=== PATIENT | female | born 1990 ===

== ENCOUNTER 2019-04-08 13:26 | Emergency (ER) | payer SELFPAY ==
[~2019-04-08] VITALS: Ht 172.7 cm; Wt 47.6 kg
[2019-04-08] MEDS ORDERED: OLAN10TA3 PO (13:52)
[2019-04-08 14:06] LABS: CLARITY,URINE CLOUDY (Clear); COLOR,URINE YELLOW (Yellow); GLUCOSE, URINE NEGATIVE (Neg); KETONES,URINE NEGATIVE (Neg); LEUKOCYTE ESTERASE ,URINE TRACE (Neg); NITRITES, URINE NEGATIVE (Neg); OCCULT BLOOD,URINE NEGATIVE (Neg); PROTEIN,URINE NEGATIVE (Neg); UA COLLECTION TYPE CLN CATCH MIDSTREAM; UROBILINOGEN,URINE 0.2 E.U/dL (0.2-1.0)
[2019-04-08 14:07] LABS: BASOPHILS # (AUTO) 0.1 X10'3 (0-0.2); BASOPHILS % (AUTO) 0.7 % (0-1); EOSINOPHILS % (AUTO) 0.4 % (0-6); HEMATOCRIT 43.2 % (35.0-45.0); HEMOGLOBIN 14.6 g/dl (12.0-16.0); LYMPHOCYTES # (AUTO) 2.5 X10'3 (1.1-4.8); LYMPHOCYTES % (AUTO) 23.7 % (21-51); MEAN CORPUSCULAR HEMOGLOBIN 29.4 PG (27.0-31.0); MEAN CORPUSCULAR HGB CONC 33.7 g/dL (33.0-36.5); MEAN CORPUSCULAR VOLUME 87.3 FL (78-98); MEAN PLATELET VOLUME 9.2 FL (7.4-10.4); MONOCYTES # (AUTO) 0.5 X10'3 (0-0.9); MONOCYTES % (AUTO) 4.8 % (2-12); NEUTROPHILS # (AUTO) 7.5 X10'3 (1.8-7.7); NEUTROPHILS % (AUTO) 70.4 % (42-75); PLATELET COUNT 312 X10'3 (140-440); RED BLOOD COUNT 4.95 X10'6 (4.20-5.60); RED CELL DISTRIBUTION WIDTH 14.7 % (11.5-14.5); WHITE BLOOD COUNT 10.6 X10'3 (4.5-11.0)
[2019-04-08 14:10] LABS: URINE HCG NEGATIVE (NEG)
[2019-04-08 14:15] LABS: URINE AMPHETAMINE SCREEN NEGATIVE (Neg); URINE BARBITUATE SCREEN NEGATIVE (Neg); URINE BENZODIAZEPINES SCREEN NEGATIVE (Neg); URINE CANNABINOID SCREEN NEGATIVE (Neg); URINE COCAINE SCREEN NEGATIVE (Neg); URINE METHADONE SCREEN NEGATIVE (Neg); URINE OPIATE SCREEN NEGATIVE (Neg); URINE PHENCYCLIDINE SCREEN NEGATIVE (Neg)
[2019-04-08 14:17] LABS: MUCUS STRANDS MODERATE /LPF (Neg); SQUAMOUS EPITHELIAL CELL,UR MANY /LPF (FEW)
[2019-04-08 14:18] LABS: BACTERIA,URINE 2+ /HPF (Neg); RBC,URINE 0-2 /HPF (0-2)
[2019-04-08 14:21] LABS: ALANINE AMINOTRANSFERASE 19 U/L (12-78); ALBUMIN 3.8 G/DL (3.4-5.0); ALBUMIN/GLOBULIN RATIO 1.1 (1.1-1.5); ALKALINE PHOSPHATASE 51 IU/L (46-116); ANION GAP 7 (8-16); ASPARTATE AMINO TRANSFERASE 9 U/L (10-37); BILIRUBIN,TOTAL 0.3 MG/DL (0.1-1.0); BLOOD UREA NITROGEN 15 MG/DL (7-18); BUN/CREATININE RATIO 20.8 (6.6-38.0); CALCIUM 8.7 MG/DL (8.5-10.1); CHLORIDE 102 MMOL/L (99-107); CREATININE 0.72 MG/DL (0.40-0.90); GLUCOSE 89 MG/DL (70-104); POTASSIUM 3.9 MMOL/L (3.5-5.1); SODIUM 140 MMOL/L (135-145); TOTAL CARBON DIOXIDE 31.5 MMOL/L (24-32); TOTAL PROTEIN 7.4 G/DL (6.4-8.2); eGFR > 90 ML/MIN
[2019-04-08 14:34] LABS: ETHANOL < 0.010 GM/DL (0.0-0.010)
--- NOTE | 2019-04-08 19:00 | NUR ---
Patient is awake and sitting on bed 22. It is difficult to establish an orientation level except patient knows person, and that she is in a hospital. When asked about S/I patient says yes but will not elaborate on a plan. The patient states she was in a psychiatriac facility in [facility] in the past but will not elaborate. Patient demands lots of food. She has had a recent weight loss. The patient makes intermittent eye contact. She admits to depression. This ticket writer can get no further information from the patient. The patient is advised that she is in a safe place. Patients bed is in direct view from the nursing station. Q15 minute rounding is being done for patient safety.
[2019-04-08] MEDS: olanzapine 10mg tablet PO SCH (20:20)
--- NOTE | 2019-04-08 22:05 | NUR ---
This patient is sleeping quietly on her left side.
--- NOTE | 2019-04-09 00:18 | NUR ---
Report called to [facility]add. Report given to Justa
--- NOTE | 2019-04-09 05:02 | NUR ---
Patient remains sleeping.
[2019-04-09 05:43] VITALS: BP 107/72
--- NOTE | 2019-04-09 06:31 | NUR ---
Patient sleeping on right side. No distress observed. Continue to monitor.
--- NOTE | 2019-04-09 08:15 | NUR ---
RN awoke patient to give medication and to eat. Patient was calm and cooperative. No distress observe. Continue to monitor.
[2019-04-09] MEDS: olanzapine 10mg tablet PO SCH (08:19)
== END 2019-04-09 14:05 ==
LOC: ER 13:28
DX: F23 Brief psychotic disorder (principal); F32.9 Major depressive disorder, single episode, unspecified; R45.1 Restlessness and agitation; R45.4 Irritability and anger; F15.90 Other stimulant use, unspecified, uncomplicated; Z59.0 Homelessness; Z79.899 Other long term (current) drug therapy
CPT/HCPCS: 36415; 80053; 80305; 80320; 81001; 81025; 84443; 85025; 99285

== ENCOUNTER 2019-04-25 20:07 | Emergency (ER) | payer MEDICAID, OTHER ==
[~2019-04-25] VITALS: Ht 172.7 cm; Wt 47.1 kg
[~2019-04-25 20:07] MED LIST: OLAN10TA3 PO
--- NOTE | 2019-04-25 21:36 | NUR ---
Pt changed into green scrubs. Pt given water and waiting for UA from pt. Pt's belongings documented and placed in ambulance bay lockers. Pt given oral hygiene products and socks.
[2019-04-25] MEDS ORDERED: OLANZapine 5mg rapidly disint. tablet PO ONE (21:45)
[2019-04-25] MEDS ORDERED: LORazepam 1 MG tablet PO ONE (21:45)
[2019-04-25 22:21] LABS: ALANINE AMINOTRANSFERASE 25 U/L (12-78); ALBUMIN 4.5 G/DL (3.4-5.0); ALBUMIN/GLOBULIN RATIO 1.2 (1.1-1.5); ALKALINE PHOSPHATASE 58 IU/L (46-116); ANION GAP 13 (8-16); ASPARTATE AMINO TRANSFERASE 14 U/L (10-37); BILIRUBIN,TOTAL 0.6 MG/DL (0.1-1.0); BLOOD UREA NITROGEN 13 MG/DL (7-18); BUN/CREATININE RATIO 17.1 (6.6-38.0); CALCIUM 9.6 MG/DL (8.5-10.1); CHLORIDE 103 MMOL/L (99-107); CREATININE 0.76 MG/DL (0.40-0.90); GLUCOSE 101 MG/DL (70-104); POTASSIUM 3.7 MMOL/L (3.5-5.1); SODIUM 144 MMOL/L (135-145); TOTAL CARBON DIOXIDE 27.6 MMOL/L (24-32); TOTAL PROTEIN 8.3 G/DL (6.4-8.2); eGFR > 90 ML/MIN
[2019-04-25 22:23] LABS: ACETAMINOPHEN < 2.0 UG/ML (10-30); BASOPHILS % (AUTO) 0.2 % (0-1); EOSINOPHILS % (AUTO) 0 % (0-6); ETHANOL < 0.010 GM/DL (0.0-0.010); HEMATOCRIT 38.6 % (35.0-45.0); HEMOGLOBIN 12.9 g/dl (12.0-16.0); LYMPHOCYTES # (AUTO) 1.8 X10'3 (1.1-4.8); LYMPHOCYTES % (AUTO) 16.4 % (21-51); MEAN CORPUSCULAR HEMOGLOBIN 29.2 PG (27.0-31.0); MEAN CORPUSCULAR HGB CONC 33.3 g/dL (33.0-36.5); MEAN CORPUSCULAR VOLUME 87.7 FL (78-98); MEAN PLATELET VOLUME 8.9 FL (7.4-10.4); MONOCYTES # (AUTO) 0.8 X10'3 (0-0.9); MONOCYTES % (AUTO) 7.3 % (2-12); NEUTROPHILS # (AUTO) 8.4 X10'3 (1.8-7.7); NEUTROPHILS % (AUTO) 76.1 % (42-75); PLATELET COUNT 297 X10'3 (140-440)
--- NOTE | 2019-04-26 00:40 | NUR ---
UA obtained; sent to lab for processing.
[2019-04-26 00:44] LABS: URINE HCG NEGATIVE (NEG)
[2019-04-26 00:55] LABS: URINE AMPHETAMINE SCREEN POSITIVE (Neg); URINE BARBITUATE SCREEN NEGATIVE (Neg); URINE BENZODIAZEPINES SCREEN NEGATIVE (Neg); URINE CANNABINOID SCREEN NEGATIVE (Neg); URINE COCAINE SCREEN NEGATIVE (Neg); URINE METHADONE SCREEN NEGATIVE (Neg); URINE OPIATE SCREEN POSITIVE (Neg); URINE PHENCYCLIDINE SCREEN NEGATIVE (Neg)
--- NOTE | 2019-04-26 01:06 | NUR ---
Packet faxed to [facility]. Unable to confirm receipt of packet as out of business hours.
--- NOTE | 2019-04-26 05:42 | NUR ---
Pt up to bathroom to perform morning toilet. No assistance required.
--- NOTE | 2019-04-26 07:14 | NUR ---
pt is sleeping
--- NOTE | 2019-04-26 08:36 | NUR ---
pt refused to eat and sitting quietly in bed just staring
--- NOTE | 2019-04-26 08:48 | NUR ---
Pt awake. She refused breakfast. She is asking to be taken to [facility]. Let her know she is in [facility]. She wants to got [facility]. Let her know she is at [facility].
--- NOTE | 2019-04-26 09:09 | NUR ---
pt keeps on pacing back and forth in front of nurses station. Pt is crying and now just went back to room sitting up in bed.
--- NOTE | 2019-04-26 10:18 | NUR ---
[facility] table filler Flaca at bedside
--- NOTE | 2019-04-26 12:04 | NUR ---
Pt sitting up in bed and crying
--- NOTE | 2019-04-26 13:04 | NUR ---
Ayana Savage called to get report.
[2019-04-26] MEDS ORDERED: LORazepam 1 MG tablet PO ONE (13:15)
[2019-04-26] MEDS: OLANZapine 2.5MG tablet PO SCH (13:34)
--- NOTE | 2019-04-26 13:38 | NUR ---
tad office called stating [facility] looking at pt and will accept once we can send a tsh and UA. order placed. called lab stated will add to previous labs. will await results.
--- NOTE | 2019-04-26 13:58 | NUR ---
PT KEEPS WALKING IN FRONT OF THE NURSES STATION AND PT IS PACING AND TALKING TO HERSELF.
[2019-04-26 14:28] LABS: CLARITY,URINE SLIGHTLY CLOUDY (Clear); COLOR,URINE YELLOW (Yellow); GLUCOSE, URINE NEGATIVE (Neg); KETONES,URINE 15 mg/dl (Neg); LEUKOCYTE ESTERASE ,URINE NEGATIVE (Neg); NITRITES, URINE NEGATIVE (Neg); OCCULT BLOOD,URINE NEGATIVE (Neg); PROTEIN,URINE NEGATIVE (Neg); UROBILINOGEN,URINE 0.2 E.U/dL (0.2-1.0)
[2019-04-26 14:34] LABS: UA COLLECTION TYPE VOIDED
[2019-04-26 14:45] LABS: AMORPHOUS PHOSPHATES 1+; MUCUS STRANDS MODERATE /LPF (Neg); SQUAMOUS EPITHELIAL CELL,UR FEW /LPF (FEW)
[2019-04-26 14:46] LABS: BACTERIA,URINE FEW /HPF (Neg); RBC,URINE 0-2 /HPF (0-2); WBC,URINE 0-4 /HPF (0-4)
--- NOTE | 2019-04-26 14:51 | NUR ---
Pt continues to pace and is talking to someone continuously who is not there.
--- NOTE | 2019-04-26 15:17 | NUR ---
Pt sitting up in bed
--- NOTE | 2019-04-26 15:19 | NUR ---
PT IS RESTING IN BEDN SITTING UP QUIETLY
--- NOTE | 2019-04-26 16:48 | NUR ---
Pt asking for saltine crackers. Crackers given.
--- NOTE | 2019-04-26 18:01 | NUR ---
Pt asleep resting on left side in no apparent distress. Respirations are even and unlabored.
[2019-04-27 05:30] VITALS: BP 109/67
--- NOTE | 2019-04-27 06:16 | NUR ---
Pt asleep on her back with even unlabored respirations in no apparent distress
[2019-04-27] MEDS: OLANZapine 2.5MG tablet PO SCH (07:07)
--- NOTE | 2019-04-27 07:15 | NUR ---
Pt asking for crackers and fawad
--- NOTE | 2019-04-27 08:14 | NUR ---
Pt sitting up awake and eating breakfast
--- NOTE | 2019-04-27 09:23 | NUR ---
Pt awake eating crackers and jello
--- NOTE | 2019-04-27 11:15 | NUR ---
Pt lying on her right side asleep in no apprent distress. Respirations are even and unlabored.
--- NOTE | 2019-04-27 12:29 | NUR ---
Cynthia from [facility] called to say Pt is accepted at [facility] by Dr Morocho.
--- NOTE | 2019-04-27 13:03 | NUR ---
Pt sitting up and eating lunch
[2019-04-27] MEDS ORDERED: OLAN10TA3 PO (13:21)
== END 2019-04-27 13:30 ==
LOC: ER 20:08
DX: F79 Unspecified intellectual disabilities (principal); F29 Unspecified psychosis not due to a substance or known physiological condition; F41.9 Anxiety disorder, unspecified; Z79.899 Other long term (current) drug therapy
CPT/HCPCS: 36415; 80053; 80305; 80320; 80329; 81001; 81025; 84443; 85025; 99285

== ENCOUNTER 2019-04-27 12:55 | Inpatient (IN) | payer MEDICAID ==
[~2019-04-27] VITALS: Ht 172.7 cm; Wt 59.0 kg
[2019-04-27] MEDS ORDERED: hydrOXYzine 25 MG tablet PO PRN (13:15)
[2019-04-27] MEDS ORDERED: acetaminophen 325mg tablet PO PRN ×2 (13:15)
[2019-04-27] MEDS ORDERED: tuberculin, purif. prot. deriv. 5 units/0.1ml ID ONE (13:15)
[2019-04-27] MEDS ORDERED: mag hydrox/Alum hydrox/simeth 30ml oral suspension PO PRN (13:15)
[2019-04-27] MEDS ORDERED: magnesium hydroxide 30ml (MOM) UD suspension PO PRN (13:15)
[2019-04-27] MEDS ORDERED: loperamide 2mg capsule PO PRN (13:15)
[2019-04-27] MEDS ORDERED: OLAN10TA3 PO (13:21)
--- NOTE | 2019-04-27 13:38 | NUR ---
Pt arrives on the unit at 1332 on a 5150 for Gravely disabled. Pt presents as psychotic. Latonya does not respond to most questions. She appears to be talking to someone that is not there. She does not remember when she last ate. She is sunburnt from being outside and cannot states where she will go when she leaves. She is unable to give a plan to provide adequate food, clothing or long-term. Pt wheel chaired here accompanied by Armetheon and Nirvaha Heather. Pt does sign most of the paperwork and answers some questions. Pt must mumble to someone that is not there and pray about it prior to answering questions. Pt given Ativan after admission interview and snacks
[2019-04-27] MEDS: LORazepam 1 MG tablet PO PRN ×2 (14:24→22:10)
[2019-04-27 15:01] VITALS: BP 106/77
--- NOTE | 2019-04-27 16:01 | NUR ---
Nursing Progress Note: Latonya Orellana Legal hold: 5150 Exp. 04/30/19 @ 1332 Client on involuntary status for DTS. Report received from VIANCA Santiago with use of SBAR. Why are they here: Pt arrives on the unit at 1332 on a 5150 for Gravely disabled. Pt presents as psychotic. Latonya does not respond to most questions. She appears to be talking to someone that is not there. She does not remember when she last ate. She is sunburned from being outside and cannot state where she will go when she leaves. She is unable to give a plan to provide adequate food, clothing or fci Assessment What has happened this shift: Patient is mostly compliant with most requests. She is easily distracted appearing to respond to others who are not present to this proposal writer. She is unable to state purpose for being here. Patient paces the room, stops, addresses visual/audio hallucination, places hands as if in prayer and then walks back. Requested Ativan which was administered then repeated the response multiple times. PPD administered without difficulty. SI/HI: Does not respond to questions A/VH: observed both audio and visual Sleep: ADL's: Independent Group attendance: Arrived after group started Were Meds taken: PRNs only ordered Any med S/E: None observed Mental Status Exam Appearance: Adequately groomed and dressed for unit. Eye contact: poor Behavior: Withdrawn, paranoid Speech: Clear, pressured Mood: restless, Affect: Blunted Thought process: disorganized, easily distracted from topic Thought Content: unable to determine Cognition: Oriented to person Insight: Poor Judgment: Poor Interventions PRN's used: Ativan Therapeutic interventions: 1:1 assessment at bedside, provided therapeutic communication, encouraged to go to groups, monitor Q15 minutes for safety. Restraints/seclusion/emergency medication: None. Justification of Continued Inpatient Treatment: Pt. Requires psychiatric evaluation for appropriate medication to stabilize current crisis. Requires ongoing monitoring of patient behaviors. Without adequate treatment for current situation, pt is at high risk for readmission if discharged at this time.
[2019-04-27 19:55] VITALS: BP 127/71
[2019-04-27] MEDS ORDERED: olanzapine 10mg tablet PO SCH (22:00)
[2019-04-27] MEDS ORDERED: olanzapine 10mg tablet PO ONE (22:00)
--- NOTE | 2019-04-28 04:18 | NUR ---
Nursing Progress Note: Legal hold: 5150 Exp. 04/30/19 @ 1332 Client on involuntary status for DTS. Report received from VIANCA Santiago with use of SBAR. Why are they here: Pt arrives on the unit at 1332 on a 5150 for Gravely disabled. Pt presents as psychotic. Latonya does not respond to most questions. She appears to be talking to someone that is not there. She does not remember when she last ate. She is sunburned from being outside and cannot state where she will go when she leaves. She is unable to give a plan to provide adequate food, clothing or halfway Assessment: What has happened this shift: The patient was in her room at shift change. She at first agreed to 1:1 at bedside. "I can talk now...No, I changed my mind, I won't talk now." The patient, when asked if knows why she's here, responded, "I'm having a real hard time with life right now. Is there any way you can get me into rehab?" When not speaking to this nurse, the patient is quietly talking to someone in her head. Sometimes she won't respond to her name when she's too distracted by the voices in her head. The patient spent the evening in her room, then asked to be moved rooms. "You put me too close to the window, it scares me." The patient was then moved to room 325B. Before leaving for the night, Dr. Guzman ordered Zyprexa 10mg to be given at . The patient was reluctant to take Zyprexa, but did. She has been sleeping all night. SI/HI: Does not answer A/VH: Observed both audio and visual Sleep: See sleep hours ADL's: Independent Group attendance: No groups at night. Were Meds taken: Yes Any med S/E: None observed Mental Status Exam: Appearance: Adequately groomed and dressed in green scrubs. Eye contact: poor Behavior: Withdrawn, paranoid, isolative Speech: Clear, pressured, latent Mood: Restless, anxious Affect: Blunted Thought process: Disorganized, easily distracted. Thought Content: unable to determine Cognition: Oriented to person Insight: Poor Judgment: Poor Interventions: PRN's used: Ativan Therapeutic interventions: 1:1 assessment at bedside, provided therapeutic communication, encouraged to go to groups, monitor Q15 minutes for safety. Restraints/seclusion/emergency medication: None. Justification of Continued Inpatient Treatment: Pt. Requires psychiatric evaluation for appropriate medication to stabilize current crisis. Requires ongoing monitoring of patient behaviors. Without adequate treatment for current situation, pt is at high risk for readmission if discharged at this time.
[2019-04-28] MEDS ORDERED: olanzapine 10mg tablet PO SCH (08:00)
[2019-04-28] MEDS ORDERED: iohexol 300mg/ml 100ml inj. ONE (13:11)
[2019-04-28 13:49] LABS: CHOLESTEROL 151 MG/DL (0-200); HDL CHOLESTEROL 30 MG/DL (35-60); LDL CHOLESTEROL 96 MG/DL (50-100); TRIGLYCERIDES 228 MG/DL (20-135)
--- NOTE | 2019-04-28 17:30 | NUR ---
Nursing Progress Note: Legal hold: 5150 Exp. 04/30/19 @ 1332 Client on involuntary status for DTS. Report received from VIANCA Barry with use of SBAR. Why are they here: Pt arrives on the unit at 1332 on a 5150 for Gravely disabled. Pt presents as psychotic. Latonya does not respond to most questions. She appears to be talking to someone that is not there. She does not remember when she last ate. She is sunburned from being outside and cannot state where she will go when she leaves. She is unable to give a plan to provide adequate food, clothing or prison Assessment: What has happened this shift: Pt. sleeping at beginning of shift. Pt. refused breakfast, pt. refused part of assessment. Pt. denies SI/HI, but responding to internal stimuli. Pt. frequently overheard talking with herself. RN unabole to do full assessment as pt. stops talking. Pt. has disorganized thinking, saying that she has diabetes, and then denies it. Pt.'s provider ordered CT scan today, pt. initially refused but then agreed. CT scan negative. Pt. seen pacing. Dietary consult placed for low BMI. Pt. is isolative and withdrawn. Pt. easilty distracted and tangential in conversation. Pt. requests shower and then refuses it. Pt. seen pacing and talking to herself throughout afternoon. SI/HI: Does not answer A/VH: Pt. does not answer but is responding to internal stimuli . Sleep: 7 hrs with frequent naps throughout the day. ADL's: Independent Group attendance: Pt. did not attend groups Were Meds taken: NA Any med S/E: None observed Mental Status Exam: Appearance: Adequately groomed and dressed in green scrubs. Eye contact: poor Behavior: Withdrawn, paranoid, isolative Speech: Clear, pressured, latent Mood: Restless, anxious Affect: Blunted Thought process: Disorganized, easily distracted, thought blocking. Thought Content: unable to determine Cognition: Oriented to person and place Insight: Poor Judgment: Poor Interventions: PRN's used: Therapeutic interventions: 1:1 assessment at bedside, provided therapeutic communication, encouraged to go to groups, monitor Q15 minutes for safety. Restraints/seclusion/emergency medication: None. Justification of Continued Inpatient Treatment: Pt. Requires psychiatric evaluation for appropriate medication to stabilize current crisis. Requires ongoing monitoring of patient behaviors. Without adequate treatment for current situation, pt is at high risk for readmission if discharged at this time.
[2019-04-28 20:00] VITALS: BP 110/80
[2019-04-28] MEDS: olanzapine 10mg tablet PO SCH (20:23)
[2019-04-28] MEDS: LORazepam 1 MG tablet PO PRN (21:14)
[2019-04-28] MEDS ORDERED: OLANZapine 5mg rapidly disint. tablet PO ONE (22:00)
[2019-04-28] MEDS ORDERED: LORazepam 1 MG tablet PO ONE (22:00)
--- NOTE | 2019-04-29 00:06 | NUR ---
Nursing Progress Note: Legal hold: 5150 Exp. 04/30/19 @ 1332 Client on involuntary status for DTS. Report received from VIANCA Santiago with use of SBAR. Why are they here: Pt arrives on the unit at 1332 on a 5150 for Gravely disabled. Pt presents as psychotic. Latonya does not respond to most questions. She appears to be talking to someone that is not there. She does not remember when she last ate. She is sunburned from being outside and cannot state where she will go when she leaves. She is unable to give a plan to provide adequate food, clothing or custodial Assessment: What has happened this shift: The patient was seen pacing the halls at shift change. The patient refused 1:1 assessment. As she paces she can be heard talking to herself, "I want you to make sure nobody gets hurt. You need to tell them to make sure Latonya doesn't get hurt." As she paces, she is unaware of her surroundings, and will walk right into people. The patient continued to pace until HS med pass. The patient had Zyprexa ordered, and took it. A little later, she asked for Ativan, then refused, then asked again and took it. She was still awake at 2300, so ordered repeat Zyprexa and Ativan. The patient took them and continued pacing. About 1/2 hour later she was still pacing and asked a female nurse to sit with her while she fell asleep, but 5 minutes later she was pacing. 15 minutes later she went and lay down. This time for good. She's asleep at this time. SI/HI: Does not answer A/VH: Observed both audio and visual Sleep: See sleep hours ADL's: Independent Group attendance: No groups at night. Were Meds taken: Yes Any med S/E: None observed Mental Status Exam: Appearance: Adequately groomed, disheveled hair, and dressed in green scrubs. Eye contact: poor Behavior: Withdrawn, paranoid, isolative Speech: Pressured, low volume, poverty Mood: Restless, anxious Affect: Blunted, fearful. Thought process: Poverty of thought, Disorganized, easily distracted. Thought Content: unable to determine Cognition: Oriented to person Insight: Poor Judgment: Poor Interventions: PRN's used: Ativan x2 Therapeutic interventions: 1:1 assessment at bedside, provided therapeutic communication, encouraged to go to groups, monitor Q15 minutes for safety. Restraints/seclusion/emergency medication: None. Justification of Continued Inpatient Treatment: Pt. Requires psychiatric evaluation for appropriate medication to stabilize current crisis. Requires ongoing monitoring of patient behaviors. Without adequate treatment for current situation, pt is at high risk for readmission if discharged at this time.
--- NOTE | 2019-04-29 09:19 | NUR ---
COLLATERAL CONTACT: TIFFANIE contacted [facility] Office at [phone], and spoke w/ Uziel regarding pt. SW was informed pt has only received crisis services 1x after an ED visit for admission to [facility] on 04/09/2019. This short story writer is instructed to provide resources for pt to attend ACCESS walk in upon discharge. Dahiana Pryor, Director [employer] DESIGNER [id number] Supervised by Cal Mendoza, [id number]
--- NOTE | 2019-04-29 11:32 | NUR ---
Malnutrition consult RE "low wt:" Pt admit w/ psychosis AOx2. Pt has normal strength, no edema/wounds; no significant wt loss hx though only pt stated wts. PO 75-100% regular diet meeting nutrient needs. At this time pt does not meet malnutrition criteria. Will continue to monitor. Addendum: 04/29/19 at [address] Amended: Links added.
[2019-04-29] MEDS: LORazepam 1 MG tablet PO PRN ×2 (17:39→20:10)
--- NOTE | 2019-04-29 17:40 | NUR ---
Nursing Progress Note: Legal hold: 5150 Exp. 04/30/19 @ 1332 Client on involuntary status for DTS. Report received from VIANCA Ibarra with use of SBAR. Why are they here: Pt arrives on the unit at 1332 on a 5150 for Gravely disabled. Pt presents as psychotic. Latonya does not respond to most questions. She appears to be talking to someone that is not there. She does not remember when she last ate. She is sunburned from being outside and cannot state where she will go when she leaves. She is unable to give a plan to provide adequate food, clothing or alf Assessment: What has happened this shift: Pt. sleeping at beginning of shift. Pt. refused vitals. Pt. refused AM assessment. Pt. refused breakfast, lunch. Pt. c/o diarrhea pt. refuses immodium. Pt. responding to internal stimuli, when RN approached pt. to assess PPD, pt. refused and then mumbled to herself, "He only wants what have". Pt. is agitated, pacing in the hallway more in the afternoon. Pt. Showered. Pt. became increasingly agitated and recieved ativan 1mg po. Pt. also recieved immodium for diarrhea. SI/HI: Does not answer A/VH: Pt. does not answer but is responding to internal stimuli . Sleep: 5 hrs with frequent naps throughout the day. ADL's: Independent. pt. showered. Group attendance: Pt. did not attend groups Were Meds taken: NA Any med S/E: None observed Mental Status Exam: Appearance: disheveled. dressed in green scrubs Eye contact: poor Behavior: Withdrawn, paranoid, isolative Speech: Clear, pressured, latent Mood: Restless, anxious Affect: Blunted Thought process: Disorganized, easily distracted, thought blocking. Thought Content: Pt. focused on discharging to rehab. Cognition: Oriented to person and place Insight: Poor Judgment: Poor Interventions: PRN's used: Ativan and Immodium Therapeutic interventions: 1:1 assessment at bedside, provided therapeutic communication, encouraged to go to groups, monitor Q15 minutes for safety. Restraints/seclusion/emergency medication: None. Justification of Continued Inpatient Treatment: Pt. Requires psychiatric evaluation for appropriate medication to stabilize current crisis. Requires ongoing monitoring of patient behaviors. Without adequate treatment for current situation, pt is at high risk for readmission if discharged at this time.
[2019-04-29] MEDS: protein shake 8oz. (237ml) PO SCH ×2 (18:00→18:11)
[2019-04-29 19:26] VITALS: BP 115/85
[2019-04-29] MEDS: olanzapine 10mg tablet PO SCH (20:10)
--- NOTE | 2019-04-30 03:58 | NUR ---
Nursing Progress Note: Legal hold: 5150 Exp. 04/30/19 @ 1332 Client on involuntary status for DTS. Report received from VIANCA Cleary with use of SBAR. Why are they here: Pt arrives on the unit at 1332 on a 5150 for Gravely disabled. Pt presents as psychotic. Latonya does not respond to most questions. She appears to be talking to someone that is not there. She does not remember when she last ate. She is sunburned from being outside and cannot state where she will go when she leaves. She is unable to give a plan to provide adequate food, clothing or [facility] Assessment: What has happened this shift: The patient was seen pacing the halls at shift change, repeating that she is fearful of scary monsters trying to get her. Patient was fixated on getting into rehab during assessment, repeatedly asking this RN when she can go to rehab. The patient was cooperative during assessment. Before going to bed the Patient asked for snacks, but was told that she needs to eat her meals and not snacks only. The patient took zyprexa and ativan at hs with no problems. SI/HI: stated that she has SI due to monsters chasing her. A/VH: Observed both audio and visual Sleep: See sleep hours ADL's: Independent Group attendance: No groups at night. Were Meds taken: Yes Any med S/E: None observed Mental Status Exam: Appearance: Adequately groomed, disheveled hair, and dressed in green scrubs. Eye contact: poor Behavior: Withdrawn, paranoid, isolative Speech: Pressured, low volume, poverty Mood: Restless, anxious Affect: fearful. Thought process: Poverty of thought, Disorganized, easily distracted. Thought Content: unable to determine Cognition: Oriented to person Insight: Poor Judgment: Poor Interventions: PRN's used: Ativan x1 Therapeutic interventions: 1:1 assessment at bedside, provided therapeutic communication, monitor Q15 minutes for safety. Restraints/seclusion/emergency medication: None. Justification of Continued Inpatient Treatment: Pt. Requires psychiatric evaluation for appropriate medication to stabilize current crisis. Requires ongoing monitoring of patient behaviors. Without adequate treatment for current situation, pt is at high risk for readmission if discharged at this time.
[2019-04-30] MEDS: protein shake 8oz. (237ml) PO SCH ×3 (08:00→18:08)
[2019-04-30] MEDS ORDERED: PALIPERIDONE 3 MG TAB.ER.24 PO ONE (08:10)
[2019-04-30] MEDS: LORazepam 1 MG tablet PO PRN ×2 (10:07→17:47)
--- NOTE | 2019-04-30 11:23 | NUR ---
Notified by dietary staff trainer requesting high protein shake TID. Pt with no wounds. D/w RN appropriate ONS would be Ensure Enlive as patient with poor PO intake 04/29. Informed RN that pt can also receive regular shakes on trays per request. Will continue to follow. Addendum: 04/30/19 at [address] Amended: Links added.
--- NOTE | 2019-04-30 12:24 | NUR ---
Pt placed on a 5250, advisement served by this RN, pt expressed understanding of hold and hearing tomorrow and signed her advisement, did not wish for anyone to be notified of her hearing.
[2019-04-30] MEDS ORDERED: JUVEN Shake w/Arg/Glut/Ca2+Bmb (Juven 19.3gm) pkt 240ml PO SCH (13:00)
--- NOTE | 2019-04-30 17:30 | NUR ---
Nursing Progress Note: Legal hold: 5250 Client on involuntary status for DTS. Report received from VIANCA Ibarra with use of SBAR. Why are they here: Pt arrives on the unit at 1332 on a 5150 for Gravely disabled. Pt presents as psychotic. Latonya does not respond to most questions. She appears to be talking to someone that is not there. She does not remember when she last ate. She is sunburned from being outside and cannot state where she will go when she leaves. She is unable to give a plan to provide adequate food, clothing or penitentiary Assessment: What has happened this shift: Pt. refused vitals and assessment this am, pt. states, "Go away". Pt. awoke and pacing on unit. AM meds and requested Ativan prn. Pt. asked RN, "Will you watch over me and read me a story". RN read to pt., however, pt. actively responding to internal stimuli between periods of listening to the story. Pt. only ate her fruit cup and drank a juice box. Pt. denies diarrhea today. Pt. asks, "when can I get discharged?" Pt. states, "I read a note that someone is going to kidnap me today". Pt. ate all her lunch. Pt. became less anxious in the afternoon and her appetite increased significantly, asking for multiple snacks. However, towards evening pt. became more paranoid and reported that she saw a man in the nursing station that shouldn't be there. Pt. reports she does hear voices, that they tell her things like, "you need to go to the doctor." Pt. reports anxiety that is 10/10. pt. given ataivan in afternoon. Pt. reports depression 5/10. Pt. denies SI/HI. Pt. refused dinner but drank her chocolate shake. Pt. reports she has an upset stomach. Pt. paranoid about other pt.'s needs asurance that she is safe. SI/HI: Does A/VH: Pt. states, "Sometimes I hear voices that tell me things like I need to go to the doctor." Sleep: 8.25 hrs with naps ADL's: Independent. Group attendance: Pt. did not attend groups Were Meds taken: NA Any med S/E: None observed Mental Status Exam: Appearance: disheveled. dressed in green scrub top and streeth pants. Eye contact: poor Behavior: Withdrawn, paranoid, isolative Speech: Clear, pressured, latent Mood: Restless, anxious Affect: Blunted Thought process: Disorganized, easily distracted, thought blocking. Thought Content: Pt. focused on discharge Cognition: Oriented to person and place Insight: Poor Judgment: Poor Interventions: PRN's used: Ativan x2 Therapeutic interventions: 1:1 assessment at bedside, provided therapeutic communication, encouraged to go to groups, monitor Q15 minutes for safety. Restraints/seclusion/emergency medication: None. Justification of Continued Inpatient Treatment: Pt. Requires psychiatric evaluation for appropriate medication to stabilize current crisis. Requires ongoing monitoring of patient behaviors. Without adequate treatment for current situation, pt is at high risk for readmission if discharged at this time.
[2019-04-30 19:38] VITALS: BP 112/73
[2019-04-30] MEDS: olanzapine 10mg tablet PO SCH (20:05)
--- NOTE | 2019-05-01 01:07 | NUR ---
Nursing Progress Note: Legal hold: 5250 Client on involuntary status for DTS. Report received from EMORY Guzmán with use of SBAR. Why are they here: Pt arrives on the unit at 1332 on a 5150 for Gravely disabled. Pt presents as psychotic. Latonya does not respond to most questions. She appears to be talking to someone that is not there. She does not remember when she last ate. She is sunburned from being outside and cannot state where she will go when she leaves. She is unable to give a plan to provide adequate food, clothing or skilled nursing Assessment: What has happened this shift: Patient laying in bed awake at the beginning of shift. Showered, put on clean green scrubs. Continues to isolate. Doesn't want to communicate with others. Patient complaint with medication and physical assessment but when asked has SI she asked this nurse to be done questioning her. Patient appears agitated and repeats "I am not comfortable". Patient had a pile of blankets on her bed waded. This nurse straighten out her bedding and removed extras from her bed. Continuously asking for hot tea, snacks, and warm blankets. She would also ask for things and by the time staff would get back she'd say, "maybe later." She wouldn't answer this nurse regarding A/VH however she was witnessed speaking to internal stimuli. SI/HI: Does A/VH: Witnessed responding to internal stimuli Sleep: Asleep at this time ADL's: Independent. Group attendance: no Were Meds taken: yes Any med S/E: None reported, none observed Mental Status Exam: Appearance: showered, clean green scrubs Eye contact: poor Behavior: Withdrawn, paranoid, isolative Speech: Clear, soft Mood: Restless, anxious Affect: Blunted Thought process: Disorganized, easily distracted, thought blocking. Thought Content: unable to assess Cognition: oriented to self Insight: Poor Judgment: Poor Interventions: PRN's used: not at this time Therapeutic interventions: 1:1 assessment at bedside, provided therapeutic communication, encouraged to go to groups, monitor Q15 minutes for safety. Restraints/seclusion/emergency medication: None. Justification of Continued Inpatient Treatment: Pt. Requires psychiatric evaluation for appropriate medication to stabilize current crisis. Requires ongoing monitoring of patient behaviors. Without adequate treatment for current situation, pt is at high risk for readmission if discharged at this time.
[2019-05-01] MEDS: protein shake 8oz. (237ml) PO SCH ×3 (08:00→17:00)
[2019-05-01] MEDS: PALIPERIDONE 3 MG TAB.ER.24 PO SCH (08:00)
--- NOTE | 2019-05-01 09:40 | NUR ---
Pt. refused vitals, med, all assessments.
[2019-05-01] MEDS: LORazepam 1 MG tablet PO PRN ×2 (12:48→21:43)
[2019-05-01] MEDS ORDERED: PALIPERIDONE 3 MG TAB.ER.24 PO ONE (12:50)
--- NOTE | 2019-05-01 13:46 | NUR ---
Nursing Progress Note Legal hold: 5250 Client on involuntary status for DTS. Report received from VIANCA Chairez with use of SBAR. Why are they here: Pt arrives on the unit at 1332 on a 5150 for Gravely disabled. Pt presents as psychotic. Latonya does not respond to most questions. She appears to be talking to someone that is not there. She does not remember when she last ate. She is sunburned from being outside and cannot state where she will go when she leaves. She is unable to give a plan to provide adequate food, clothing or [facility] Assessment: What has happened this shift: Patient got up for breakfast and then went immediately back to bed. When attempting to administer Invega, pt stated that she was not going to take it. This afternoon patient requested Ativan and asked if she would take Invega, she said she would not because "it almost killed me". Reports anxiety is 5/10. Patient practices avoidance when questioned and just walks away from questions. This a.m. told me to "go away". SI/HI: Denies. A/VH: Pt. appears to be responding to internal stimuli. Sleep: 6.5 hrs NOC with long naps ADL's: Independent. Group attendance: Pt. did not attend groups Were Meds taken: Refused Invega. Any med S/E: None observed Mental Status Exam: Appearance: disheveled. Dressed appropriately for unit. Eye contact: poor. Avoidance. Behavior: Withdrawn, paranoid, isolative Speech: Clear, pressured, latent Mood: Restless, anxious Affect: Blunted Thought process: Disorganized, easily distracted, thought blocking. Thought Content: Pt. focused on discharge Cognition: Oriented to person and place Insight: Poor Judgment: Poor Interventions: PRN's used: Ativan x2 Therapeutic interventions: 1:1 assessment at bedside, provided therapeutic communication, encouraged to go to groups, monitor Q15 minutes for safety. Restraints/seclusion/emergency medication: None. Justification of Continued Inpatient Treatment: Pt. Requires psychiatric evaluation for appropriate medication to stabilize current crisis. Requires ongoing monitoring of patient behaviors. Without adequate treatment for current situation, pt is at high risk for readmission if discharged at this time.
[2019-05-01 19:52] VITALS: BP 117/74
[2019-05-01] MEDS: OLANZAPINE 5 MG TABLET PO SCH (22:36)
[2019-05-01] MEDS: NICOTINE POLACRILEX 2 MG LOZENGE MM PRN (22:36)
--- NOTE | 2019-05-01 23:48 | NUR ---
Nursing Progress Note Legal hold: 5250 Client on involuntary status for DTS. Report received from VIANCA Duff with use of SBAR. Why are they here: Pt arrives on the unit at 1332 on a 5150 for Gravely disabled. Pt presents as psychotic. Latonya does not respond to most questions. She appears to be talking to someone that is not there. She does not remember when she last ate. She is sunburned from being outside and cannot state where she will go when she leaves. She is unable to give a plan to provide adequate food, clothing or [facility] Assessment: What has happened this shift: Patient ambulating the unit garza at the beginning of shift. She continuously got in and out bed. she came to ask this nurse to sit with her. she allowed this nurse to then do her physical assessment where she denied SI and HI but later reported SI and HI to another nurse in which no clear plan was offered. Patient appears to enjoy tea as she asked several times for a new cup. She continuously asks for warm blankets. Several times she sat with the nurses because she was "scared" of her room, it is unclear as to what made her feel this way. While sitting with the nurses she asked for the curtain to be down because outside was also scaring her. Patient appeared restless as she would go from sitting with the nurses, to the garza, back into her room, and into the rec room continuously. She continues to respond to internal stimuli and would turn in the direction that she was responding to unseen persons. Patient had difficulty taking medication. PRN Ativan provided upon request for agitation and after several attempts patient took her scheduled Zyprexa SI/HI: yes, unclear plans A/VH: Pt. appears to be responding to internal stimuli. Sleep: Asleep at this time ADL's: Independent. Group attendance: No Were Meds taken: Yes. Refused Zyprexa several times, agreed to take it after her Ativan and several attempts of administration. Any med S/E: None observed Mental Status Exam: Appearance: Disheveled. Dressed appropriately for unit. Eye contact: poor. Avoidance. Behavior: Withdrawn, paranoid, isolative Speech: Clear, pressured, latent Mood: Restless, anxious Affect: Blunted Thought process: Disorganized, easily distracted, thought blocking. Thought Content: not able to asses Cognition: Oriented to person and place Insight: Poor Judgment: Poor Interventions: PRN's used: Ativan for agitation and nicotine lozenge Therapeutic interventions: 1:1 assessment at bedside, provided therapeutic communication, encouraged to go to groups, monitor Q15 minutes for safety. Restraints/seclusion/emergency medication: None. Justification of Continued Inpatient Treatment: Pt. Requires psychiatric evaluation for appropriate medication to stabilize current crisis. Requires ongoing monitoring of patient behaviors. Without adequate treatment for current situation, pt is at high risk for readmission if discharged at this time.
[2019-05-02 07:00] VITALS: BP 112/73
[2019-05-02] MEDS: protein shake 8oz. (237ml) PO SCH ×3 (08:00→17:20)
[2019-05-02] MEDS: PALIPERIDONE 3 MG TAB.ER.24 PO SCH (08:05)
[2019-05-02] MEDS: NICOTINE POLACRILEX 2 MG LOZENGE MM PRN (12:39)
--- NOTE | 2019-05-02 13:29 | NUR ---
Legal hold: 5250 Client on involuntary status for DTS. Report received from VIANCA Cook with use of SBAR. Why are they here: Pt arrives on the unit at 1332 on a 5150 for Gravely disabled. Pt presents as psychotic. Latonya does not respond to most questions. She appears to be talking to someone that is not there. She does not remember when she last ate. She is sunburned from being outside and cannot state where she will go when she leaves. She is unable to give a plan to provide adequate food, clothing or retirement Assessment: What has happened this shift: Patient initially refused vitals, but allowed them to be taken before breakfast. Napped after breakfast. Patient started asking when she could be released, informed her that had gone home for day. She then said that when she is discharged, she wants to transfer to another facility like this one. Patient will answer a few questions, but many times is so preoccupied with voices, that she cannot process information. At one point she started cussing in a low voice, "you don't want to mess around with Latonya, Latonya will get you". When asking her birthdate, she was making mouth movements and talking in low tone. I asked her what she said, and she said that she hadn't said anything yet. Patient became extremely anxious with A/H that she started talking about beating up her roommate. Ativan 1 mg given, patient pacing halls at this time. Obtained order for Zyprexa Zydis 5 mg q6h prn. SI/HI: Denies. A/VH: Patient having conversations with herself, sometimes responding to a male voice "yes new". Constantly moving her lips and talking in low tones. Sleep: 5.5 hrs NOC with nap after breakfast. ADL's: Independent. Group attendance: Pt. did not attend groups Were Meds taken: Yes. Any med S/E: None observed Mental Status Exam: Appearance: disheveled. Dressed in street clothes. Eye contact: poor. Avoidant. Behavior: Withdrawn, paranoid, isolative Speech: Clear, pressured, latent responses. Mood: Restless, anxious, agitated. Affect: Blunted Thought process: Disorganized, easily distracted, thought blocking. Thought Content: Pt. focused on discharge Cognition: Oriented to person and place Insight: Impaired. Judgment: Impaired. Interventions: PRN's used: Ativan Therapeutic interventions: 1:1 assessment at bedside, provided therapeutic communication, encouraged to go to groups, clear and simple instructions, monitor Q15 minutes for safety. Restraints/seclusion/emergency medication: None. Justification of Continued Inpatient Treatment: Pt. Requires psychiatric evaluation for appropriate medication to stabilize current crisis. Requires ongoing monitoring of patient behaviors. Without adequate treatment for current situation, pt is at high risk for readmission if discharged at this time.
[2019-05-02] MEDS: LORazepam 1 MG tablet PO PRN (13:54)
[2019-05-02] MEDS ORDERED: OLANZapine 5mg rapidly disint. tablet PO PRN (14:05)
[2019-05-02] MEDS: LORazepam 1 MG tablet PO SCH (20:38)
[2019-05-02] MEDS: OLANZAPINE 5 MG TABLET PO SCH (20:38)
--- NOTE | 2019-05-03 00:23 | NUR ---
Legal hold: 5250 Client on involuntary status for DTS. Report received from EMORY Duff with use of SBAR. Why are they here: Pt arrives on the unit at 1332 on a 5150 for Gravely disabled. Pt presents as psychotic. Latonya does not respond to most questions. She appears to be talking to someone that is not there. She does not remember when she last ate. She is sunburned from being outside and cannot state where she will go when she leaves. She is unable to give a plan to provide adequate food, clothing or assisted Assessment: What has happened this shift: Patient visible on unit at the beginning of shift. Greeted this nurse and immediately asked for snacks. small snack provided at that time but 15 mins later patient was asking for more snacks. She was then asked to wait until snack hour. She then began asking each staff member to sit in her room, read to her and watch her sleep. Patient then set up in the rec room with a channel she agreed to watch. Watching TV did not last long and moved on to asking staff to shower her. Patient was asked to wait after medication pass to shower as staff was not available to sit down at that time. She agreed but continued to come up with many more questions. Patient continued to follow nursing but getting in and out of bed between following staff members. Patient observed responding to internal stimuli, while responding to internal stimuli she turns toward an unseen person. Patient continues to respond to internal stimuli between conversations with staff as if she is having more than one conversation. Patient was compliant with medications and physical assessment but refused VS. Patient c/o 10/10 back pain and PRN Tylenol provided and effective. By the time staff was ready to shower patient she decided she wanted to go to bed instead where she has remained. SI/HI: Denies. A/VH: Observed responding and turning into direction of an unseen person Sleep: asleep at this time ADL's: Independent. Group attendance: no Were Meds taken: Yes. Any med S/E: None observed, none reported Mental Status Exam: Appearance: disheveled. Dressed in street clothes. Eye contact: poor. Avoidant. Behavior: Withdrawn, paranoid, isolative Speech: Clear, pressured, latent responses. Mood: Restless, anxious, agitated. Affect: Blunted Thought process: Disorganized, easily distracted, thought blocking. Thought Content: not wanting to be alone Cognition: Oriented to person and place Insight: Impaired. Judgment: Impaired. Interventions: PRN's used: Tylenol, effective Therapeutic interventions: 1:1 assessment at bedside, provided therapeutic communication, encouraged to go to groups, clear and simple instructions, monitor Q15 minutes for safety. Restraints/seclusion/emergency medication: None. Justification of Continued Inpatient Treatment: Pt. Requires psychiatric evaluation for appropriate medication to stabilize current crisis. Requires ongoing monitoring of patient behaviors. Without adequate treatment for current situation, pt is at high risk for readmission if discharged at this time.
[2019-05-03 07:51] VITALS: BP 109/68
[2019-05-03] MEDS ORDERED: PALIPERIDONE 3 MG TAB.ER.24 PO SCH (08:00)
[2019-05-03] MEDS: protein shake 8oz. (237ml) PO SCH ×3 (08:00→17:37)
[2019-05-03] MEDS: LORazepam 1 MG tablet PO SCH ×3 (08:33→21:40)
--- NOTE | 2019-05-03 16:21 | NUR ---
Rm 326A Nursing Progress Note Legal hold: 5250 Client on involuntary status for GD. Report received from EMORY Guevara with use of SBAR. Why are they here: Pt admitted to the unit on a 5150 for grave disability. Pt presents as psychotic. Latonya does not respond to most questions. She appears to be talking to someone that is not there. She does not remember when she last ate. She is sunburned from being outside and cannot state where she will go when she leaves. She is unable to give a plan to provide adequate food, clothing or [facility] Assessment: What has happened this shift: Pt was sleeping at the change of shift. She initially refused to take her medications, but with encouragement accepted the medication. She refused to cooperate with assessment. She stated, "good night, don't talk to me anymore." Pt's affect is labile. She stayed in bed sleeping for much of the day. She occasionally walked in the halls. She wanted to know the results of the brain scan she had yesterday, but the scan she had was five days ago. She was up for all meals. SI/HI: JULIENNE A/VH: JULIENNE Sleep: Napped during the day ADL's: Independent. Group attendance: Pt. did not attend groups Were Meds taken: Yes. Any med S/E: None reported or observed Mental Status Exam: Appearance: Disheveled Eye contact: Indirect Behavior: Isolates Speech: Minimal speech Mood: Irritable Affect: Labile Thought process: Disorganized Thought Content: JULIENNE Cognition: Oriented to person and place Insight: Poor Judgment: Poor Interventions: PRN's used: None Therapeutic interventions: Establish therapeutic relationship, perform 1:1 assessment, provided active listening, medication education, administration, and monitoring for effects, maintained therapeutic milieu, Q15 min safety checks. Restraints/seclusion/emergency medication: None. Justification of Continued Inpatient Treatment: Pt. Requires psychiatric evaluation for appropriate medication to stabilize current crisis. Requires ongoing monitoring of patient behaviors. Without adequate treatment for current situation, pt is at high risk for readmission if discharged at this time. Addendum: 05/03/19 at 1702 by Fanny Montano RN Addendum: Pt noted to be responding to internal stimuli. She sat looking towards moving her lips silently talking and occasionally shaking her head up and down.
[2019-05-03] MEDS: NICOTINE POLACRILEX 2 MG LOZENGE MM PRN (16:32)
[2019-05-03] MEDS: LORazepam 1 MG tablet PO PRN (17:22)
[2019-05-03 20:00] VITALS: BP 115/75
[2019-05-03] MEDS: OLANZAPINE 5 MG TABLET PO SCH (21:40)
--- NOTE | 2019-05-04 01:27 | NUR ---
Nursing Progress Note Rm 326A Nursing Progress Note Legal hold: 5250 Client on involuntary status for GD. Report received from Sherin CAT with use of SBAR. Why are they here: Pt admitted to the unit on a 5150 for grave disability. Pt presents as psychotic. Latonya does not respond to most questions. She appears to be talking to someone that is not there. She does not remember when she last ate. She is sunburned from being outside and cannot state where she will go when she leaves. She is unable to give a plan to provide adequate food, clothing or halfway. At times when interacting with her she appeared to be conversing with someone who was not there. She also has some flight of ideas Assessment: What has happened this shift: Awake at start of shift, wandering the hallways. Took medications without problem,. She refused to cooperate with assessment. She stated, "good night, don't talk to me anymore." Pt's affect is labile. Quite wakeful early in shift She occasionally walked in the halls. She wanted to know the results of the brain scan she had yesterday, but the scan she had was five days ago. She was up for all meals. SI/HI: JULIENNE A/VH: JULIENNE Sleep: ADL's: Independent. Group attendance: Pt. did not attend groups Were Meds taken: Yes. Any med S/E: None reported or observed Mental Status Exam: Appearance: Disheveled Eye contact: Indirect Behavior: Isolates Speech: Minimal speech Mood: Irritable Affect: Labile Thought process: Disorganized Thought Content: JULIENNE Cognition: Oriented to person and place Insight: Poor Judgment: Poor Interventions: 1:1 intervention; meds; active listening PRN's used: None Therapeutic interventions: Establish therapeutic relationship, perform 1:1 assessment, provided active listening, medication education, administration, and monitoring for effects, maintained therapeutic milieu, Q15 min safety checks. Restraints/seclusion/emergency medication: None. Justification of Continued Inpatient Treatment: Pt. Requires psychiatric evaluation for appropriate medication to stabilize current crisis. Requires ongoing monitoring of patient behaviors. Without adequate treatment for current situation, pt is at high risk for readmission if discharged at this time.
[2019-05-04] MEDS: protein shake 8oz. (237ml) PO SCH ×2 (08:00→13:00)
[2019-05-04] MEDS: LORazepam 1 MG tablet PO SCH ×3 (08:03→20:14)
[2019-05-04] MEDS: PALIPERIDONE 3 MG TAB.ER.24 PO SCH (08:03)
--- NOTE | 2019-05-04 11:31 | NUR ---
Pt. refused vitals in a.m.
--- NOTE | 2019-05-04 16:50 | NUR ---
Legal hold: 5250 Client on involuntary status for DTS. Report received from Elana Sue RN. Why are they here: Pt arrives on the unit at 1332 on a 5150 for Gravely disabled. Pt presents as psychotic. Latonya does not respond to most questions. She appears to be talking to someone that is not there. She does not remember when she last ate. She is sunburned from being outside and cannot state where she will go when she leaves. She is unable to give a plan to provide adequate food, clothing or [facility] Assessment: What has happened this shift: Patient up for breakfast, refused vital signs. Patient is triangulating staff about snacks. She will ask 3 people for snacks, which are denied due to snack time has already happened, patient does not eat enough of her meals to make it through. After asking her not to ask anyone else about snacks, she stated "your a fucking bitch". Patient slept most of the day, did not attend groups. She is seen moving her mouth and responding to internal stimuli. Patient also asked when she was going to be discharged, informed her Dr. Kennedy would be back in the morning. She is now pacing hallways, irritated. SI/HI: Denies. A/VH: Patient having conversations with herself. Constantly moving her lips and talking in low tones. Sleep: 6.5 hrs NOC with long naps. ADL's: Independent. Group attendance: Pt. did not attend groups Were Meds taken: Yes. Any med S/E: None observed Mental Status Exam: Appearance: disheveled. Dressed in street clothes. Eye contact: poor. Avoidant. Behavior: Withdrawn, paranoid, isolative, irritable. Speech: Clear, pressured. Mood: Restless, anxious, agitated or somnolent Affect: Blunted Thought process: Disorganized, easily distracted, thought blocking. Getting needs met. Thought Content: Pt. focused on food and discharge. Cognition: Oriented to person and place Insight: Impaired. Judgment: Impaired. Interventions: PRN's used: None. Therapeutic interventions: 1:1 assessment at bedside, provided therapeutic communication, encouraged to go to groups, clear and simple instructions, medication education/administration/monitoring, Q15 minute safety checks. Restraints/seclusion/emergency medication: None. Justification of Continued Inpatient Treatment: Pt. Requires psychiatric evaluation for appropriate medication to stabilize current crisis. Requires ongoing monitoring of patient behaviors. Without adequate treatment for current situation, pt is at high risk for readmission if discharged at this time.
[2019-05-04 19:27] VITALS: BP 115/80
[2019-05-04] MEDS: OLANZAPINE 5 MG TABLET PO SCH (20:14)
--- NOTE | 2019-05-05 01:43 | NUR ---
Legal hold: 5250 Client on involuntary status for DTS. Report received from EMORY Duff with use of SBAR. Why are they here: Pt arrives on the unit at 1332 on a 5150 for Gravely disabled. Pt presents as psychotic. Latonya does not respond to most questions. She appears to be talking to someone that is not there. She does not remember when she last ate. She is sunburned from being outside and cannot state where she will go when she leaves. She is unable to give a plan to provide adequate food, clothing or [facility] Assessment: What has happened this shift: Pt walks up to marketing copywriter and says , "I am hearing voices I need my medication plase." Pt was given scheduled Ativan and zyprexa. Pt asks to shower, and requests that staff stay in the shower room with her because she is "scared." Staff stayed in room with her while she showered, and this made her happy. She thanked staff multiple times and said "I feel much better now that I am clean." She also got clothes from the clothing closet. When asked what her voices are saying she replies, "mostly good stuff, they tell me to stay here longer." She says sometimes the voices are people she knows and other times they are strangers. She says she feels depressed because, "I need a lot of help with my mental health and that depresses me." When asked if she is feeling suicidal she said, "yea, a week or so ago I tried to hang myself with clothing, not here, somehwere else." Deputy Program Manager asks if she has a plan and she replies, "no not here, i like it here, it is good that I am here I think I should stay here longer when you guys discharge me I think i will check myself back in voluntarily." "I think I should probably live in some kind of housing I have been walking the streets for too long." SI/HI: Denies. A/VH: Observed responding and turning into direction of an unseen person Sleep: see sleep assessment notation ADL's: Independent. Group attendance: no Were Meds taken: Yes. Any med S/E: None observed, none reported Mental Status Exam: Appearance: disheveled. Dressed in street clothes. Eye contact: poor. Avoidant. Behavior: Withdrawn, paranoid, isolative Speech: Clear, pressured, latent responses. Mood: Restless, anxious, agitated. Affect: Blunted Thought process: Disorganized, easily distracted, thought blocking. Thought Content: not wanting to be alone Cognition: Oriented to person and place Insight: Impaired. Judgment: Impaired. Interventions: PRN's used: Tylenol, effective Therapeutic interventions: 1:1 assessment at bedside, provided therapeutic communication, encouraged to go to groups, clear and simple instructions, monitor Q15 minutes for safety. Restraints/seclusion/emergency medication: None. Justification of Continued Inpatient Treatment: Pt. Requires psychiatric evaluation for appropriate medication to stabilize current crisis. Requires ongoing monitoring of patient behaviors. Without adequate treatment for current situation, pt is at high risk for readmission if discharged at this time.
[2019-05-05] MEDS: PALIPERIDONE 3 MG TAB.ER.24 PO SCH (07:59)
[2019-05-05] MEDS: LORazepam 1 MG tablet PO SCH ×3 (07:59→20:15)
[2019-05-05] MEDS: protein shake 8oz. (237ml) PO SCH ×3 (08:00→18:02)
[2019-05-05] MEDS: NICOTINE POLACRILEX 2 MG LOZENGE MM PRN ×3 (15:07→20:48)
--- NOTE | 2019-05-05 15:16 | NUR ---
Nursing Progress Note Legal hold: 5250 Client on involuntary status for DTS. Report received from Elana Sue RN. Why are they here: Pt arrives on the unit at 1332 on a 5150 for Gravely disabled. Pt presents as psychotic. Latonya does not respond to most questions. She appears to be talking to someone that is not there. She does not remember when she last ate. She is sunburned from being outside and cannot state where she will go when she leaves. She is unable to give a plan to provide adequate food, clothing or nursing home Assessment: What has happened this shift: Patient refused vitals again today. She gets up for meals and snacks and goes right back to bed. Patient in the afternoon stated that her voices are better, but says "nothing" when asked what they are saying. Patient again goes up and down the halls asking for snacks. Reweighed patient today, and she has gained approx. 4 pounds in a week. SI/HI: Denies. A/VH: Patient states A/H are better. Sleep: 7.75 hrs NOC with long naps. ADL's: Independent. Group attendance: Pt. did not attend groups Were Meds taken: Yes. Any med S/E: None observed Mental Status Exam: Appearance: disheveled. Dressed in green scrubs.. Eye contact: poor. Avoidant. Behavior: Withdrawn, paranoid, isolative. Speech: Clear, slightly pressured. Mood: Restless, anxious, or somnolent Affect: Blunted Thought process: Disorganized, easily distracted, thought blocking. Getting needs met. Thought Content: Pt. focused on food and discharge. Cognition: Oriented to person and place Insight: Impaired. Judgment: Impaired. Interventions: PRN's used: None. Therapeutic interventions: 1:1 assessment at bedside, provided therapeutic communication, encouraged to go to groups, clear and simple instructions, medication education/administration/monitoring, Q15 minute safety checks. Restraints/seclusion/emergency medication: None. Justification of Continued Inpatient Treatment: Pt. Requires psychiatric evaluation for appropriate medication to stabilize current crisis. Requires ongoing monitoring of patient behaviors. Without adequate treatment for current situation, pt is at high risk for readmission if discharged at this time.
[2019-05-05] MEDS: OLANZAPINE 5 MG TABLET PO SCH (20:15)
[2019-05-05 20:20] VITALS: BP 127/76
--- NOTE | 2019-05-06 02:24 | NUR ---
NURSING PROGRESS NOTE: Legal hold: 5250 Client on involuntary status for DTS. Report received from EMORY Duff with use of SBAR. Why are they here: Pt arrives on the unit at 1332 on a 5150 for Gravely disabled. Pt presents as psychotic. Latonya does not respond to most questions. She appears to be talking to someone that is not there. She does not remember when she last ate. She is sunburned from being outside and cannot state where she will go when she leaves. She is unable to give a plan to provide adequate food, clothing or group home Assessment: What has happened this shift: Pt walks around the unit approaching staff and asking for things such as tea, blankets, and to have the TV channel changed. She will come and sit next to scientific writer and say hello, then get up 5 seconds later and walk away. She answers questions, but never has a full conversation. Pt walks up to scientific writer and asks for her HS medications zyprexa and ativan "because I am hearing voices." When asked what the voices are saying she does not respond. She occasionally sits in a chair and is seen responding to internal stimuli under her breath. She walks up to random staff members and asks them to watch her sleep. SI/HI: Denies. A/VH: Observed responding and turning into direction of an unseen person Sleep: see sleep assessment notation ADL's: Independent. Group attendance: no Were Meds taken: Yes. Any med S/E: None observed, none reported Mental Status Exam: Appearance: clean, well groomed Eye contact: poor. Avoidant. Behavior: Withdrawn, paces Speech: Clear, pressured, latent responses. Mood: Restless, anxious Affect: bizarre Thought process: Disorganized, easily distracted, thought blocking. Thought Content: not wanting to be alone Cognition: Oriented to person and place Insight: Impaired. Judgment: Impaired. Interventions: PRN's used: NA Therapeutic interventions: 1:1 assessment at bedside, provided therapeutic communication, encouraged to go to groups, clear and simple instructions, monitor Q15 minutes for safety. Restraints/seclusion/emergency medication: None. Justification of Continued Inpatient Treatment: Pt. Requires psychiatric evaluation for appropriate medication to stabilize current crisis. Requires ongoing monitoring of patient behaviors. Without adequate treatment for current situation, pt is at high risk for readmission if discharged at this time.
[2019-05-06] MEDS: PALIPERIDONE 3 MG TAB.ER.24 PO SCH (08:10)
[2019-05-06] MEDS: protein shake 8oz. (237ml) PO SCH ×3 (08:11→17:59)
[2019-05-06] MEDS: LORazepam 1 MG tablet PO SCH ×3 (08:11→20:10)
--- NOTE | 2019-05-06 08:22 | NUR ---
1:1 ASSESSMENT: SW met w/ pt in observation room, upon pt agreeing to complete psychosocial assessment. During assessment pt was observed talking quietly to something this commercial insurance underwriter could not see. Pt appeared to be arguing w/ the invisible being regarding what to answer to in the psychosocial assessment. SW asked pt if she would be willing to tell the "voice" that I am trying to help pt get better and access services for her health and safety when she discharges. Pt denied internal stimuli and stated she could no longer meet w/ SW. This commercial insurance underwriter will attempt to meet w/ pt again on 05/06/2019, to complete initial psychosocial assessment. SW will attempt to interact w/ the "voice" or provide empathy regarding the difficulty the pt must have when the "voice" is not nice to her and lies to her about others helping her. Late note entry 05/05/2019 Dahiana Pryor, Electronic Design Engineer SEWER BRICKLAYER [id number] Supervised by Cal Mendoza, [id number]
[2019-05-06 10:30] VITALS: BP 102/64
--- NOTE | 2019-05-06 10:58 | NUR ---
Reassessment: Patient with significant improvement in PO intake meeting nutrient needs now documented with 75-100% of meals and receiving vanilla shake TID. Patient's wt is up 2.6 kg since admit using standing scales likely r/t increase in PO intake and possibly secondary to some medications. LBM 05/01, d/w dietary to send power pudding on lunch tray today. Will continue to follow. Recommendations: 1) Continue regular diet 2) Vanilla shake TID 3) Routine bowel care 4) Weekly wt Addendum: 05/06/19 at [address] Amended: Links added.
[2019-05-06] MEDS: NICOTINE POLACRILEX 2 MG LOZENGE MM PRN ×2 (15:56→20:46)
--- NOTE | 2019-05-06 16:58 | NUR ---
Nursing Progress Note Legal hold: 5250 Client on involuntary status for GD. Report received from EMORY Ibarra. Why are they here: Pt admitted to the unit on a 5150 for grave disability. Pt presents as psychotic. Latonya does not respond to most questions. She appears to be talking to someone that is not there. She does not remember when she last ate. She is sunburned from being outside and cannot state where she will go when she leaves. She is unable to give a plan to provide adequate food, clothing or group home Assessment: What has happened this shift: Pt sleeping at change of shift. She refused AM VS. She was compliant with medication administration. She only allowed a partial assessment and then indicated she wanted to go back to sleep. She denied depression. Pt appears to be responding to internal stimuli. She moves her lips and appears to be talking to someone when no one is there. When this writer editor asked who's talking to her, she immediately turned around. As she walked away she stated, "She's creepy." A lead generation representative for the [facility] assessed the pt for possible admission. Pt attended a portion of the afternoon group. In the late afternoon, the pt sat looking at the window quietly talking to herself. SI/HI: Denies A/VH: Appears to be responding to internal stimuli Sleep: Napped during the day ADL's: Independent. Group attendance: Partial PM group Were Meds taken: Yes. Any med S/E: None observed Mental Status Exam: Appearance: Green scrubs, short hair Eye contact: Indirect Behavior: Isolates, but does occasionally interact with staff. Speech: Normal rate and rhythm Mood: Restless Affect: Blunted Thought process: Disorganized, responding to internal stimuli Thought Content: Pt. focused on talking to the doctor and discharge Cognition: Oriented to person and place Insight: Poor Judgment: Poor. Interventions: PRN's used: NIcotine lozenge Therapeutic interventions: Establish therapeutic relationship, perform 1:1 assessment, provided active listening, medication education, administration, and monitoring for effects, maintained therapeutic milieu, Q15 min safety checks. Restraints/seclusion/emergency medication: None. Justification of Continued Inpatient Treatment: Pt requires psychiatric evaluation for appropriate medication to stabilize current crisis. Requires ongoing monitoring of patient behaviors. Continued therapeutic support and medication management needed to provide stabilization, prevent decompensation, and decreasing risk to patient and readmittance to inpatient unit.
[2019-05-06 19:55] VITALS: BP 128/83
[2019-05-06] MEDS: OLANZAPINE 5 MG TABLET PO SCH (20:10)
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
[2019-05-07] MEDS: PALIPERIDONE 3 MG TAB.ER.24 PO SCH (08:27)
[2019-05-07] MEDS: LORazepam 1 MG tablet PO SCH ×3 (08:27→21:00)
[2019-05-07] MEDS: protein shake 8oz. (237ml) PO SCH ×3 (08:50→18:00)
[2019-05-07] MEDS: NICOTINE POLACRILEX 2 MG LOZENGE MM PRN (12:42)
--- NOTE | 2019-05-07 16:38 | NUR ---
Nursing Progress Note Legal hold: 5250 Client on involuntary status for GD. Report received from EMORY Ibarra. Why are they here: Pt admitted to the unit on a 5150 for grave disability. Pt presents as psychotic. Latonya does not respond to most questions. She appears to be talking to someone that is not there. She does not remember when she last ate. She is sunburned from being outside and cannot state where she will go when she leaves. She is unable to give a plan to provide adequate food, clothing or penitentiary Assessment: What has happened this shift: Pt sleeping at change of shift. Pt is medication compliant. She denies depression. She accepted a PRN Ativan when offered and a nicotine lozenge. Pt has been accepted at [facility] and once she heard she had been accepted she then spent the rest of the day perseverating on getting an exact discharge date from Dr. Kennedy. SI/HI: Denies A/VH: verbally denies; at times appeared to be RIS Sleep: Up most of the day ADL's: Independent. Group attendance: Yes Were Meds taken: Yes. Any med S/E: None observed Mental Status Exam: Appearance: street clothes that appear to be pajamas, short hair Eye contact: Indirect Behavior: Today she continuously joined staff and sat with staff while charting Speech: Normal rate and rhythm Mood: Restless Affect: Blunted Thought process: Disorganized, responding to internal stimuli Thought Content: Pt. focused on talking to the doctor and discharge Cognition: Oriented to person and place Insight: Poor Judgment: Poor. Interventions: PRN's used: Nicotine lozenge; Ativan Therapeutic interventions: Establish therapeutic relationship, perform 1:1 assessment, provided active listening, medication education, administration, and monitoring for effects, maintained therapeutic milieu, Q15 min safety checks. Restraints/seclusion/emergency medication: None. Justification of Continued Inpatient Treatment: Pt requires psychiatric evaluation for appropriate medication to stabilize current crisis. Requires ongoing monitoring of patient behaviors. Continued therapeutic support and medication management needed to provide stabilization, prevent decompensation, and decreasing risk to patient and readmittance to inpatient unit.
[2019-05-07 20:00] VITALS: BP 124/79
[2019-05-07] MEDS: OLANZAPINE 5 MG TABLET PO SCH (21:00)
--- NOTE | 2019-05-08 02:04 | NUR ---
Nursing Progress Note Legal hold: 5250 Client on involuntary status for GD. Report received from EMORY Magaña. Why are they here: Pt admitted to the unit on a 5150 for grave disability. Pt presents as psychotic. Latonya does not respond to most questions. She appears to be talking to someone that is not there. She does not remember when she last ate. She is sunburned from being outside and cannot state where she will go when she leaves. She is unable to give a plan to provide adequate food, clothing or group home Assessment: What has happened this shift: Pt pacing unit at change of shift. During 1:1, pt stated she felt "Scared". She could not state why when asked to elaborate and said "I don't know I just do." RN asked whether pt felt anxious; pt stated yes. RN spoke with patient about her day and upcoming discharge to which the pt stated she was looking forward to. RN provided warm blanket and tea, and pt stated she felt better. Attended snack, then returned to room. Pt was med compliant. SI/HI: Denies A/VH: Denies Sleep: See Sleep Assessment ADL's: Independent. Group attendance: N/A Were Meds taken: Yes. Any med S/E: None observed, none reported Mental Status Exam: Appearance: personal clothing, short hair, clean Eye contact: Direct Behavior: Attending snack, pacing halls, watching TV Speech: Normal rate and rhythm Mood: Restless, Anxious, "Scared" Affect: Blunted Thought process: Linear Thought Content: Pt. focused on discharge and feeling scared Cognition: A&Ox4 Insight: Poor to fair Judgment: Poor Interventions: PRN's used: N/A Therapeutic interventions: Establish therapeutic relationship, perform 1:1 assessment, provided active listening, medication education, administration, and monitoring for effects, maintained therapeutic milieu, Q15 min safety checks. Restraints/seclusion/emergency medication: None. Justification of Continued Inpatient Treatment: Pt requires psychiatric evaluation for appropriate medication to stabilize current crisis. Requires ongoing monitoring of patient behaviors. Continued therapeutic support and medication management needed to provide stabilization, prevent decompensation, and decreasing risk to patient and readmittance to inpatient unit.Pt accepted to [facility] awaiting bed to open.
[2019-05-08] MEDS: protein shake 8oz. (237ml) PO SCH ×3 (08:00→18:00)
[2019-05-08] MEDS: LORazepam 1 MG tablet PO SCH ×3 (10:03→21:04)
[2019-05-08] MEDS: PALIPERIDONE 3 MG TAB.ER.24 PO SCH (10:04)
[2019-05-08] MEDS ORDERED: OLAN5TAB5 PO (14:50)
[2019-05-08] MEDS ORDERED: OLAN2.5T3 PO (14:50)
--- NOTE | 2019-05-08 15:24 | NUR ---
Nursing Progress Note Legal hold: 5250 Client on involuntary status for GD. Report received from EMORY Cook with use of SBAR Why are they here: Pt admitted to the unit on a 5150 for grave disability. Pt presents as psychotic. Latonya does not respond to most questions. She appears to be talking to someone that is not there. She does not remember when she last ate. She is sunburned from being outside and cannot state where she will go when she leaves. She is unable to give a plan to provide adequate food, clothing or skilled nursing Assessment: What has happened this shift: Pt asleep at start of shift she remained asleep until 1000. Pt refused am medications until 1000 at which time she was given her meds and her breakfast. Pt c/o of not feeling well states, "I have the flu." Pt stayed in bed all shift sleeping. VS WNL's SI/HI: Denies A/VH: verbally denies Sleep: Slept almost the entire shift ADL's: Independent. Group attendance: No Were Meds taken: Yes. Any med S/E: None observed Mental Status Exam: Appearance: shorts and a t-shirt Eye contact: Indirect Behavior: Quiet, slept all day, c/o of not feeling well Speech: Normal rate and rhythm Mood: Calm Affect: Flat Thought process: Isolated today Thought Content: Unsure since she slept most of the day and asked to be left alone. Cognition: Oriented x3 Insight: Poor Judgment: Poor. Interventions: PRN's used: N/A Therapeutic interventions: provided therapeutic communication and active listening; medication education, administration, and monitoring for effects, encouraged her to get up and attend groups; offered Tylenol for pain; Q15 min safety checks. Restraints/seclusion/emergency medication: None. Justification of Continued Inpatient Treatment: Pt requires psychiatric evaluation for appropriate medication to stabilize current crisis. Requires ongoing monitoring of patient behaviors. Continued therapeutic support and medication management needed to provide stabilization, prevent decompensation, and decreasing risk to patient and readmittance to inpatient unit.
[2019-05-08] MEDS: NICOTINE POLACRILEX 2 MG LOZENGE MM PRN (19:45)
[2019-05-08 19:55] VITALS: BP 107/62
[2019-05-08] MEDS: OLANZAPINE 5 MG TABLET PO SCH (21:04)
--- NOTE | 2019-05-09 00:07 | NUR ---
Nursing Progress Note Legal hold: 5250 Client on involuntary status for GD. Report received from VIANCA Magaña with use of SBAR Why are they here: Pt admitted to the unit on a 5150 for grave disability. Pt presents as psychotic. Latonya does not respond to most questions. She appears to be talking to someone that is not there. She does not remember when she last ate. She is sunburned from being outside and cannot state where she will go when she leaves. She is unable to give a plan to provide adequate food, clothing or [facility] Assessment: What has happened this shift: Patient laying in bed asleep at the beginning of shift. She later woke for snack in group room and took a shower. Patient c/o having the "flu" when this advertising copywriter asked what makes her feel that she has the flu she stated she had "body aches" but when asked to identify her pain she stated she doesn't have any pain and needed a nicotine lozenge. Patient remained pleasant and cooperative for assessment and medication. Continues to respond to internal stimuli, however, she is observed responding more under her breath rather than out loud. Patient is sporadic with needs. She continues to ask staff to sit with her in her room or read to her and immediately asks for staff to leave or she will get up and walk away to ask another staff member for another task. SI/HI: Denies A/VH: denies but observed responding to internal stimuli Sleep: asleep at this time ADL's: Independent. Group attendance: No Were Meds taken: Yes. Any med S/E: None observed, none reported Mental Status Exam: Appearance: showered, clean clothes Eye contact: Indirect Behavior: sporadic when awake, slept most of the shift Speech: Normal rate and rhythm Mood: "ok" Affect: Flat Thought process: tangential Thought Content: "I have the flu" Cognition: Oriented x3 Insight: Poor Judgment: Poor. Interventions: PRN's used: nicotine lozenge Therapeutic interventions: provided therapeutic communication and active listening; medication education, administration, and monitoring for effects, encouraged her to get up and attend groups; offered Tylenol for pain; Q15 min safety checks. Restraints/seclusion/emergency medication: None. Justification of Continued Inpatient Treatment: Pt requires psychiatric evaluation for appropriate medication to stabilize current crisis. Requires ongoing monitoring of patient behaviors. Continued therapeutic support and medication management needed to provide stabilization, prevent decompensation, and decreasing risk to patient and readmittance to inpatient unit.
[2019-05-09 08:00] VITALS: BP 85/50
[2019-05-09] MEDS: protein shake 8oz. (237ml) PO SCH ×3 (08:00→18:14)
[2019-05-09] MEDS: LORazepam 1 MG tablet PO SCH ×3 (08:08→19:19)
[2019-05-09] MEDS: PALIPERIDONE 3 MG TAB.ER.24 PO SCH (08:08)
--- NOTE | 2019-05-09 15:33 | NUR ---
Nursing Progress Note: BETTYE Legal hold: 5250 Client on involuntary status for GD. Report received from Elana Lake RN with use of SBAR Why are they here: Pt was admitted to the unit initially on a 5150 for GD. Pt presents as psychotic. Bettye does not respond to most questions. She appears to be talking to someone that is not there. She does not remember when she last ate. She is sunburned from being outside and cannot state where she will go when she leaves. She is unable to give a plan to provide adequate food, clothing or alf Assessment: What has happened this shift: Patient laying in bed asleep at the beginning of shift. She is malodorous today, wearing street clothes and has a disheveled appearance. Patient was pleasant and cooperative for assessment and medication administration. Patient is demanding about wanting snacks. After given one snack, she became angry when she was told to wait until lunch. She reports, Im starving! She is found pacing the halls, responding to internal stimuli most of the day. Pt incessant about snacks entire day. SI/HI: Denies A/VH: denies but observed responding to internal stimuli Sleep: 7 NOC ADL's: Independent Group attendance: Were Meds taken: Yes Any med S/E: None observed, none reported Mental Status Exam: Appearance: Disheveled, malodorous Eye contact: mostly indirect Behavior: Focused on snacks Speech: Normal rate and rhythm Mood: "Starving Affect: Flat Thought process: focused on snacks Thought Content: "I need food, Im starving" Cognition: Oriented x3 Insight: Poor Judgment: Poor. Interventions: PRN's used: Therapeutic interventions: provided therapeutic communication and active listening; medication education, administration, and monitoring for effects, encouraged her to get up and attend groups; offered Tylenol for pain; Q15 min safety checks. Restraints/seclusion/emergency medication: None. Justification of Continued Inpatient Treatment: Pt requires psychiatric evaluation for appropriate medication to stabilize current crisis. Requires ongoing monitoring of patient behaviors. Continued therapeutic support and medication management needed to provide stabilization, prevent decompensation, and decreasing risk to patient and readmittance to inpatient unit.
[2019-05-09] MEDS: NICOTINE POLACRILEX 2 MG LOZENGE MM PRN (16:58)
[2019-05-09] MEDS ORDERED: ondansetron 4mg rapidly disintigrating tab PO ONE (19:25)
[2019-05-09 19:33] VITALS: BP 103/60
[2019-05-09] MEDS: OLANZAPINE 5 MG TABLET PO SCH (20:38)
[2019-05-09] MEDS: LORazepam 1 MG tablet PO PRN (20:39)
--- NOTE | 2019-05-10 02:03 | NUR ---
Nursing Progress Note Legal hold: 5250 Client on involuntary status for GD. Report received from VIANCA Magaña with use of SBAR Why are they here: Pt admitted to the unit on a 5150 for grave disability. Pt presents as psychotic. Latonya does not respond to most questions. She appears to be talking to someone that is not there. She does not remember when she last ate. She is sunburned from being outside and cannot state where she will go when she leaves. She is unable to give a plan to provide adequate food, clothing or care home Assessment: What has happened this shift: Patient alert and visible on the unit at the beginning of shift. She approached nurses where they were charting and initiated conversation. Showed interest in getting to know each nurse as she asked about schooling, jobs, and families. Patient remained pleasant and cooperative with assess SI/HI: Denies A/VH: denies but observed responding to internal stimuli Sleep: asleep at this time ADL's: Independent. Group attendance: No Were Meds taken: Yes. Any med S/E: None observed, none reported Mental Status Exam: Appearance: disheveled Eye contact: indirect Behavior: emotionally needy Speech: Normal rate and rhythm Mood: depressed Affect: Flat Thought process: tangential Thought Content: "not feeling well" Cognition: Oriented x3 Insight: Poor Judgment: Poor. Interventions: PRN's used: Yovany and Wolf, effective Therapeutic interventions: provided therapeutic communication and active listening; medication education, administration, and monitoring for effects, encouraged her to get up and attend groups; offered Tylenol for pain; Q15 min safety checks. Restraints/seclusion/emergency medication: None. Justification of Continued Inpatient Treatment: Pt requires psychiatric evaluation for appropriate medication to stabilize current crisis. Requires ongoing monitoring of patient behaviors. Continued therapeutic support and medication management needed to provide stabilization, prevent decompensation, and decreasing risk to patient and readmittance to inpatient unit. Addendum: 05/10/19 at 0300 by Shameka Yancey RN Nursing Progress Note Legal hold: 5250 Client on involuntary status for GD. Report received from VIANCA Magaña with use of SBAR Why are they here: Pt admitted to the unit on a 5150 for grave disability. Pt presents as psychotic. Latonya does not respond to most questions. She appears to be talking to someone that is not there. She does not remember when she last ate. She is sunburned from being outside and cannot state where she will go when she leaves. She is unable to give a plan to provide adequate food, clothing or care home Assessment: What has happened this shift: Patient alert and visible on the unit at the beginning of shift. She approached nurses where they were charting and initiated conversation. Patient initially stated her need for several different medications in which Ativan was provided for agitation. However, while the patient sat and talked with staff she showed interest in getting to know each nurse as she asked about schooling, jobs, and families. However when the conversations became quiet she'd ask for several different things like snack, PRN medication, or staff to visit in her room. When her or staff were able to restart conversation she appeared less agitated and would disregard PRN medication. Patient remained pleasant and cooperative with assessment and medications. When asked about her day she sort of shrugged and said "ok" but when this nurse asked if she had any feeling of depression she agreed. She then offered that her stomach felt "bloated" and she explained feelings of nausea. She was then ordered one time dose for Zofran and she reported feeling much better after taking it. Patient brought up that she may discharge to the [facility] on Sunday and this nurse asked if she was happy about that and she agreed. She also brought up that she needed a sponsor for drug counseling. Patient ate her snack in the group room with peers and went to bed shortly after. SI/HI: Denies A/VH: denies but observed responding to internal stimuli Sleep: asleep at this time ADL's: Independent. Group attendance: No Were Meds taken: Yes. Any med S/E: None observed, none reported Mental Status Exam: Appearance: disheveled Eye contact: indirect Behavior: socializing, emotionally needy Speech: Normal rate and rhythm Mood: depressed Affect: Flat Thought process: flight of ideas Thought Content: "not feeling well" and discharging Cognition: Oriented x3 Insight: Poor Judgment: Poor. Interventions: PRN's used: Ativan and Zofran, effective Therapeutic interventions: provided therapeutic communication and active listening; medication education, administration, and monitoring for effects, encouraged her to get up and attend groups; offered Tylenol for pain; Q15 min safety checks. Restraints/seclusion/emergency medication: None. Justification of Continued Inpatient Treatment: Pt requires psychiatric evaluation for appropriate medication to stabilize current crisis. Requires ongoing monitoring of patient behaviors. Continued therapeutic support and medication management needed to provide stabilization, prevent decompensation, and decreasing risk to patient and readmittance to inpatient unit.
[2019-05-10] MEDS: LORazepam 1 MG tablet PO SCH ×3 (07:54→21:15)
[2019-05-10] MEDS: PALIPERIDONE 3 MG TAB.ER.24 PO SCH (07:54)
[2019-05-10 08:00] VITALS: BP 118/74
[2019-05-10] MEDS: protein shake 8oz. (237ml) PO SCH ×3 (08:20→18:01)
[2019-05-10] MEDS: NICOTINE POLACRILEX 2 MG LOZENGE MM PRN ×3 (11:55→19:16)
[2019-05-10] MEDS: LORazepam 1 MG tablet PO PRN (14:51)
--- NOTE | 2019-05-10 17:12 | NUR ---
Nursing Progress Note: BETTYE Legal hold: 5250 Client on involuntary status for GD. Report received from Elana Lake RN with use of SBAR Why are they here: Pt admitted to the unit on a 5150 for GD. Pt presents as psychotic. Bettye does not respond to most questions. She appears to be talking to someone that is not there. She does not remember when she last ate. She is sunburned from being outside and cannot state where she will go when she leaves. She is unable to give a plan to provide adequate food, clothing or half-way Assessment: What has happened this shift: Patient sleeping at the beginning of shift. Pt asks for several different things like snacks, PRN medication, or staff to visit & read in her room. Patient was not compliant with assessment this AM, reports Im not interested in that right now and walked away. Pt willingly took her medications. She confirms depression sx & states she is eager to leave the unit. She reports she feels constipated and requested MOM. Dr Kennedy ordered extra protein for pt to assist with satiation and decrease snack consumption, he is aware of protruding abdomen d/t malnutrition status. Pt frequently asked for spare clothing throughout the shift. Also inquired about her discharge many times. SI/HI: Denies A/VH: Denies but observed responding to internal stimuli Sleep: 8hr NOC ADL's: Independent Group attendance: No Were Meds taken: Yes Any med S/E: None observed, none reported Mental Status Exam: Appearance: disheveled, pajamas Eye contact: direct Behavior: socializing, needy Speech: Normal rate and rhythm Mood: Depressed Affect: Flat Thought process: goal oriented Thought Content: discharging, snacks, PRNs & new clothes Cognition: Oriented x3 Insight: Poor Judgment: Poor Interventions: PRN's used: Lisy X2, MOM X1, Ativan X1 Therapeutic interventions: provided therapeutic communication and active listening; medication education, administration, and monitoring for effects, encouraged her to get up and attend groups; offered Tylenol for pain; Q15 min safety checks. Restraints/seclusion/emergency medication: None. Justification of Continued Inpatient Treatment: Pt requires psychiatric evaluation for appropriate medication to stabilize current crisis. Requires ongoing monitoring of patient behaviors. Continued therapeutic support and medication management needed to provide stabilization, prevent decompensation, and decreasing risk to patient and readmittance to inpatient unit.
[2019-05-10 19:00] VITALS: BP 119/77
[2019-05-10] MEDS: OLANZAPINE 5 MG TABLET PO SCH (21:15)
--- NOTE | 2019-05-11 03:06 | NUR ---
Nursing Progress Note: Legal hold: 5250 Client on involuntary status for GD Report received from nurse with use of SBAR: Ramirez RN Why are they here: Pt admitted to the unit on a 5150 for GD after self-presenting to the ER for help. Latonya does not respond to most questions. She appears to be talking to someone that is not there. She does not remember when she last ate. She is sunburned from being outside and cannot state where she will go when she leaves. She is unable to give a plan to provide adequate food, clothing or mcc. She has a hx of psychosis and polysubstance abuse. Assessment What has happened this shift: Pt. up in the Recreation Room at the beginning of the shift, watching TV and interacting minimally with others. This writer editor introduced self and established rapport, pt. requested Nicotine Lozenge and Ativan. This writer editor educated pt. that it was not yet time for her scheduled Ativan, and pt. reported understanding. Pt. later became tearful and approached staff stating, "I don't want to leave yet, I need long-term help, I don't want to go to [facility]. What if I tell them I want to kill myself?" Staff was able to console pt. and pt. reported she would be happy to go to [facility], but long-term care would be better. Pt. also expressed interest in talking with a social security assessor about applying for social security, will endorse to AM shift. Attempted to complete 1:1 at bedside, pt. presents as restless and attention seeking at times. Thought process is disorganized, however pt. is able to be redirected. She denies A/V/MCCONNELL, however appears to be internally preoccupied at times. Pt. is A&O X2 (to name and reason here). No c/o stomach discomfort this shift. S/I, H/I: Denies A/VH: She denies A/V/MCCONNELL, however appears to be internally preoccupied at times. Sleep: Awakes in the middle of the night to request snacks and then returns to bed ADL's: Requires some direction from staff Group attendance: Attends HS snack Were meds taken: Yes Any med S/E: None Mental Status Exam Appearance: Neat and appropriately dressed Eye contact: Fair Behavior: Cooperative, restless, attentions seeking/intrusive at times Speech: Soft, minimal Mood: Anxious/restless Affect: Labile Thought process:[] Thought Content:[] Cognition: A&O X2 (name and why here) Insight: Poor Judgment: Poor Interventions PRN's used: Nicotine Lozenge Therapeutic interventions: Introduced self and established rapport, maintained a safe and supportive environment, encouraged independent performance of ADLs, monitored behaviors and need for intervention, provided clear and simple instructions, reoriented to reality as needed, and maintained Q 15 min safety checks. Restraints/seclusion/emergency medication: N/A Justification of Continued Inpatient Treatment: Per Dr. Kennedy, pt. is near baseline and will D/C to [facility] when bed available, without housing she would be a risk for relapse. Addendum: 05/11/19 at 0416 by Antonia Prescott RN Thought Process: Thought blicking Thought Content: Possible H/A, paranoid delusions, and phobia r/t D/C
[2019-05-11] MEDS: LORazepam 1 MG tablet PO SCH ×3 (07:49→20:17)
[2019-05-11] MEDS: PALIPERIDONE 3 MG TAB.ER.24 PO SCH (07:49)
[2019-05-11] MEDS: protein shake 8oz. (237ml) PO SCH ×3 (08:00→18:04)
[2019-05-11] MEDS: NICOTINE POLACRILEX 2 MG LOZENGE MM PRN (15:52)
--- NOTE | 2019-05-11 18:03 | NUR ---
Nursing Progress Note: Legal hold: 5250 Client on involuntary status for GD. Report received from Elana Lake RN with use of SBAR Why are they here: Pt admitted to the unit on a 5150 for GD. Pt presents as psychotic. Latonya does not respond to most questions. She appears to be talking to someone that is not there. She does not remember when she last ate. She is sunburned from being outside and cannot state where she will go when she leaves. She is unable to give a plan to provide adequate food, clothing or care home Assessment: What has happened this shift: Received pt sleeping in bed w/o distress at change of shift. She was irritable during AM meds, yet took them and returned to sleeping. Pt attended meals and and became more pleasant throughout the day. Excited about going to the [facility] and c/o being bored here. Pt enjoyed picking out some clothes that were donated and will be taking them to the [facility]. Continues to be hungry between meals and asks for snacks throughout the day. Childlike in her greetings and short conversations. Used phone several times and became tearful during her last conversation. SI/HI: Denies A/VH: Denies but observed responding to internal stimuli Sleep: Good ADL's: Independent Group attendance: No Were Meds taken: Yes Any med S/E: None observed, none reported Mental Status Exam: Appearance: disheveled, pajamas Eye contact: direct Behavior: socializing, needy Speech: Normal rate and rhythm Mood: Depressed Affect: Flat Thought process: goal oriented Thought Content: Discharge to [facility], snacks, new clothes Cognition: Oriented x3 Insight: Poor Judgment: Poor Interventions: PRN's used: None Therapeutic interventions: provided therapeutic communication and active listening; medication education, administration, and monitoring for effects, encouraged her to get up and attend groups; offered Tylenol for pain; Q15 min safety checks. Restraints/seclusion/emergency medication: None. Justification of Continued Inpatient Treatment: Pt requires psychiatric evaluation for appropriate medication to stabilize current crisis. Requires ongoing monitoring of patient behaviors. Continued therapeutic support and medication management needed to provide stabilization, prevent decompensation, and decreasing risk to patient and readmittance to inpatient unit.
[2019-05-11 19:33] VITALS: BP 114/68
[2019-05-11] MEDS: OLANZAPINE 5 MG TABLET PO SCH (20:17)
--- NOTE | 2019-05-11 23:46 | NUR ---
Nursing Progress Note: Legal hold: 5250. Client on involuntary status for DTS. Report received from VIANCA Duff with use of SBAR. Why are they here: Pt arrives on the unit at 1332 on a 5150 for Gravely disabled. Pt presents as psychotic. Latonya does not respond to most questions. She appears to be talking to someone that is not there. She does not remember when she last ate. She is sunburned from being outside and cannot state where she will go when she leaves. She is unable to give a plan to provide adequate food, clothing or snf Assessment: What has happened this shift: The patient was seen moving about the halls at shift change. The patient is continuing to respond to internal stimuli, but is not so obvious when talking to "them." The patient moves about the unit from tech to nurse asking for random things, like toothbrushes, or food. When these things are provided, she's already moved to her next "want," and does not want the other things anymore. She becomes fixated on one thing for a minute, then moves on. She continues to be disorganized with attention-seeking behaviors. The patient appears to be happy to DC to [facility], and smiles childlike when talking about discharge. The patient would not go to bed until her roommate went with her, "I'm scared to go to bed alone, will you go with me?" The patient took HS meds, then went to bed. SI/HI: stated that she has SI due to monsters chasing her. A/VH: Responds to audio hallucinations. Sleep: See sleep hours ADL's: Independent, needs prompting. Group attendance: No groups at night. Were Meds taken: Yes Any med S/E: None observed Mental Status Exam: Appearance: WNL, disheveled hair, and dressed in street clothes. Eye contact: poor Behavior: Withdrawn, paranoid, isolative, attention-seeking. Speech: Pressured, low volume, poverty Mood: Restless, anxious Affect: fearful. Thought process: Poverty of thought, Disorganized, easily distracted. Thought Content: unable to determine Cognition: Oriented to person. Insight: Poor Judgment: Poor Interventions: PRN's used: Therapeutic interventions: 1:1 assessment at bedside, provided therapeutic communication, monitor Q15 minutes for safety. Restraints/seclusion/emergency medication: None. Justification of Continued Inpatient Treatment: Pt. Requires psychiatric evaluation for appropriate medication to stabilize current crisis. Requires ongoing monitoring of patient behaviors. Without adequate treatment for current situation, pt is at high risk for readmission if discharged at this time.
[2019-05-12 08:00] VITALS: BP 117/59
[2019-05-12] MEDS: protein shake 8oz. (237ml) PO SCH ×3 (08:02→18:00)
[2019-05-12] MEDS: PALIPERIDONE 3 MG TAB.ER.24 PO SCH (08:02)
[2019-05-12] MEDS: LORazepam 1 MG tablet PO SCH ×3 (08:02→20:24)
[2019-05-12] MEDS: NICOTINE POLACRILEX 2 MG LOZENGE MM PRN ×2 (11:37→17:27)
--- NOTE | 2019-05-12 17:05 | NUR ---
Nursing Progress Note: BETTYE Legal hold: 5250. Client on involuntary status for DTS. Report received from VIANCA Chairez with use of SBAR. Why are they here: Pt arrives on the unit at 1332 on a 5150 for Gravely disabled. Pt presents as psychotic. Bettye does not respond to most questions. She appears to be talking to someone that is not there. She does not remember when she last ate. She is sunburned from being outside and cannot state where she will go when she leaves. She is unable to give a plan to provide adequate food, clothing or fci Assessment: What has happened this shift: The patient was sleeping in bed at shift change. When fiction and nonfiction writer prose attempted to wake her for assessment and medication administration pt angerly told fiction and nonfiction writer prose to leave and come back during breakfast. At breakfast pt requested to have her medications. She appeared guarded and defensive but took her medications with no problem. She denies any SEs and none were objectively observed. The patient continues to briefly respond to internal stimuli throughout the day. The patient continues to be very needy, asking each staff member for random things, like snacks, medications or blankets and never seems to be satisfied once she receives what she asks. She is disorganized with attention-seeking behaviors. SI/HI: denies A/VH: Observed responding to AH Sleep: 7.75 hrs NOC ADL's: Independent, needs prompting. Group attendance: briefly Were Meds taken: Yes Any med S/E: None observed Mental Status Exam: Appearance: Disheveled hair, and dressed in street clothes. Eye contact: Poor Behavior: Withdrawn, isolative, attention-seeking, needy, sporadic Speech: Pressured, low volume, poverty Mood: Restless, anxious Affect: Blank/flat Thought process: Poverty of thought, Disorganized Thought Content: Needs, sporadic Cognition: Oriented to person & place Insight: Poor Judgment: Poor Interventions: PRN's used: Nicotine matthew X1 Therapeutic interventions: 1:1 assessment at bedside, provided therapeutic communication, monitor Q15 minutes for safety. Restraints/seclusion/emergency medication: None. Justification of Continued Inpatient Treatment: Pt. Requires psychiatric evaluation for appropriate medication to stabilize current crisis. Requires ongoing monitoring of patient behaviors. Without adequate treatment for current situation, pt is at high risk for readmission if discharged at this time.
[2019-05-12 19:50] VITALS: BP 104/68
[2019-05-12] MEDS: OLANZAPINE 5 MG TABLET PO SCH (20:24)
--- NOTE | 2019-05-12 22:15 | NUR ---
Nursing Progress Note: Legal hold: 5250. Client on involuntary status for DTS. Report received from VIANCA Duff with use of SBAR. Why are they here: Pt arrives on the unit at 1332 on a 5150 for Gravely disabled. Pt presents as psychotic. Latonya does not respond to most questions. She appears to be talking to someone that is not there. She does not remember when she last ate. She is sunburned from being outside and cannot state where she will go when she leaves. She is unable to give a plan to provide adequate food, clothing or chcf Assessment: What has happened this shift: The patient was "pacing" the halls at shift change. She was later seen in her room, but refused physical assessment. She had decided that she was leaving today, but is educated that she will be let know when she has discharge plans. She knows she's going to the [facility], but not when. She is looking forward to going there. The patient continues to move about the unit without purpose, asking for things, then changing her mind. The patient showered tonight then resumed "pacing to pass the time." The patient waits until her roommate goes to bed, "I'm scared of the monsters getting me." They went to bed after HS med pass. SI/HI: denies. A/VH: Responds to audio hallucinations. Sleep: See sleep hours ADL's: Independent, needs prompting. Group attendance: No groups at night. Were Meds taken: Yes Any med S/E: None observed Mental Status Exam: Appearance: Clean, freshly showered, hair combed, and dressed in street clothes. Eye contact: poor Behavior: Paranoid, isolative, attention-seeking, paces. Speech: Pressured, low volume, poverty Mood: Restless. Affect: fearful, paranoid. Thought process: Poverty of thought, Disorganized, easily distracted. Thought Content: unable to determine Cognition: Oriented to person. Insight: Poor Judgment: Poor Interventions: PRN's used: Therapeutic interventions: 1:1 assessment at bedside, provided therapeutic communication, monitor Q15 minutes for safety. Restraints/seclusion/emergency medication: None. Justification of Continued Inpatient Treatment: Pt. Requires psychiatric evaluation for appropriate medication to stabilize current crisis. Requires ongoing monitoring of patient behaviors. Without adequate treatment for current situation, pt is at high risk for readmission if discharged at this time.
[2019-05-13] MEDS: LORazepam 1 MG tablet PO SCH ×3 (07:50→20:16)
[2019-05-13] MEDS: PALIPERIDONE 3 MG TAB.ER.24 PO SCH (07:51)
[2019-05-13 08:00] VITALS: BP 111/73
[2019-05-13] MEDS: protein shake 8oz. (237ml) PO SCH ×3 (08:10→18:01)
--- NOTE | 2019-05-13 14:22 | NUR ---
Reassessment: Patient with significant improvement in PO intake meeting nutrient needs now documented with 75-100% of meals and receiving vanilla shake TID. Patient's wt is up 8.4 kg since admit using standing scales likely r/t increase in PO intake and possibly secondary to some medications. Will continue to follow. Recommendations: 1) Continue regular diet 2) Vanilla shake TID 3) Routine bowel care 4) Weekly wt Addendum: 05/13/19 at [address] Amended: Links added.
--- NOTE | 2019-05-13 16:42 | NUR ---
Nursing Progress Note: BETTYE Legal hold: 5250. Client on involuntary status for DTS. Report received from VIANCA Ibarra with use of SBAR. Why are they here: Pt arrives on the unit at 1332 on a 5150 for Gravely disabled. Pt presents as psychotic. Bettye does not respond to most questions. She appears to be talking to someone that is not there. She does not remember when she last ate. She is sunburned from being outside and cannot state where she will go when she leaves. She is unable to give a plan to provide adequate food, clothing or skilled nursing Assessment: What has happened this shift: The patient was sleeping in bed at shift change. She initially refused vitals to be taken but later conceded. At breakfast pt requested to have her medications. She appeared guarded and defensive but took her medications with no problem. She denies any SEs and none were objectively observed. The patient continues to briefly respond to internal stimuli throughout the day. The patient continues to be very needy, asking each staff member for random things, like snacks, medications or blankets. She is disorganized with attention-seeking behaviors. Mid morning she requested an Ativan, when asked why she felt she needed it she reported that she feels trapped here. Reactor Operator took the time to discuss pts upcoming discharge. She reports that the social work assistant told her that, Ill have to wait weeks to get into the [facility]3] and I dont want to do that. I think Im going to leave tomorrow. Ill be fine. Pt has poor judgment and planning regarding her discharge. Pt was observed socializing in the hallway, reported to another pt that she wanted to leave so she could smoke and use drugs. Pt was seen by Dr Garcia for her weekly visit which went well. SI/HI: denies A/VH: Observed responding to AH Sleep: 6.75hrs NOC ADL's: Independent, needs prompting. Group attendance: briefly Were Meds taken: Yes Any med S/E: None observed Mental Status Exam: Appearance: Disheveled hair, and dressed in street clothes. Eye contact: Poor Behavior: Withdrawn, isolative, attention-seeking, needy, sporadic Speech: Pressured, low volume, poverty Mood: Restless, anxious Affect: Blank/flat Thought process: Poverty of thought, Disorganized Thought Content: Needs, sporadic Cognition: Oriented to person & place Insight: Poor Judgment: Poor Interventions: PRN's used: Therapeutic interventions: 1:1 assessment at bedside, provided therapeutic communication, monitor Q15 minutes for safety. Restraints/seclusion/emergency medication: None. Justification of Continued Inpatient Treatment: Pt. Requires psychiatric evaluation for appropriate medication to stabilize current crisis. Requires ongoing monitoring of patient behaviors. Without adequate treatment for current situation, pt is at high risk for readmission if discharged at this time.
[2019-05-13] MEDS: NICOTINE POLACRILEX 2 MG LOZENGE MM PRN (17:00)
[2019-05-13 19:46] VITALS: BP 115/74
[2019-05-13] MEDS: OLANZAPINE 5 MG TABLET PO SCH (20:16)
--- NOTE | 2019-05-13 23:23 | NUR ---
Nursing Progress Note: Legal hold: 5250. Client on involuntary status for DTS. Report received from VIANCA Duff with use of SBAR. Why are they here: Pt arrives on the unit at 1332 on a 5150 for Gravely disabled. Pt presents as psychotic. Latonya does not respond to most questions. She appears to be talking to someone that is not there. She does not remember when she last ate. She is sunburned from being outside and cannot state where she will go when she leaves. She is unable to give a plan to provide adequate food, clothing or retirement Assessment: What has happened this shift: The patient was in the halls at shift change. She is upset at not being discharged to the [facility] today. Now, she believes that she's here for weeks until a bed opens up. The patient says that she has a place to go. "I met some mars at a zoroastrian...No, actually I met him at the [place]. He offered me a room to rent." The patient is unable to name this person. She is evasive, and gets irritable when asked follow up questions. The patient spent the evening moving around the unit. It can be observed that she remains in one spot longer than in the past. She takes her medication with no complaint, then heads to bed. "I haven't seen the Devil for a while. He is scarey looking, that's why I always want someone to be with me when I fall asleep. SI/HI: denies. A/VH: Responds to audio hallucinations. Sleep: See sleep hours ADL's: Independent, needs prompting. Group attendance: No groups at night. Were Meds taken: Yes Any med S/E: None observed Mental Status Exam: Appearance: Clean, hair combed, dressed in short sweats and long-sleeve shirt. Eye contact: poor Behavior: Paranoid, isolative, attention-seeking, paces. Speech: Pressured, low volume, poverty Mood: Restless, irritable Affect: fearful, paranoid. Thought process: Poverty of thought, Disorganized, easily distracted. Thought Content: Preoccupied with discharge. Cognition: Oriented to person. Insight: Poor Judgment: Poor Interventions: PRN's used: Therapeutic interventions: 1:1 assessment at bedside, provided therapeutic communication, monitor Q15 minutes for safety. Restraints/seclusion/emergency medication: None. Justification of Continued Inpatient Treatment: Pt. Requires psychiatric evaluation for appropriate medication to stabilize current crisis. Requires ongoing monitoring of patient behaviors. Without adequate treatment for current situation, pt is at high risk for readmission if discharged at this time.
[2019-05-14 08:00] VITALS: BP 106/70
[2019-05-14] MEDS: PALIPERIDONE 3 MG TAB.ER.24 PO SCH (08:16)
[2019-05-14] MEDS: NICOTINE POLACRILEX 2 MG LOZENGE MM PRN ×2 (08:38→19:52)
[2019-05-14] MEDS: LORazepam 1 MG tablet PO SCH (08:57)
[2019-05-14] MEDS: protein shake 8oz. (237ml) PO SCH ×3 (08:58→18:46)
[2019-05-14] MEDS ORDERED: LORazepam 0.5 MG tablet PO SCH (13:00)
--- NOTE | 2019-05-14 15:34 | NUR ---
Nursing Progress Note Legal hold: 5250. Client on involuntary status for DTS. Report received from VIANCA Ibarra with use of SBAR. Why are they here: Pt arrives on the unit at 1332 on a 5150 for Gravely disabled. Pt presents as psychotic. Latonya does not respond to most questions. She appears to be talking to someone that is not there. She does not remember when she last ate. She is sunburned from being outside and cannot state where she will go when she leaves. She is unable to give a plan to provide adequate food, clothing or chcf Assessment: What has happened this shift: Pt up walking the halls and welcoming on coming staff at the start of the shift. Pt slept on and off throughout the day. Her Ativan 1300 dose decreased from 1mg to 0.5mg. She to bounce back and forth regarding the discharge plan at times agreeing to go to the [facility] and other times wanting to go to the [facility]. SI/HI: denies A/VH: denies Sleep: a few hours during the day ADL's: Independent, needs prompting. Group attendance: briefly Were Meds taken: Yes Any med S/E: None observed Mental Status Exam: Appearance: appears to have showered recently Eye contact: Poor Behavior: Withdrawn, isolative, attention-seeking, needy, Speech: Pressured, low volume, poverty Mood: Restless, anxious Affect: Blank/flat Thought process: Poverty of thought, Disorganized Thought Content: Discharge planning Cognition: Oriented to person & place Insight: Poor Judgment: Poor Interventions: PRN's used: N/A Therapeutic interventions: 1:1 assessment in am, therapeutic communication and active listening, administration/education/monitoring medications, encouraged to attend groups and stick with her discharge plan of going to [facility], q15min safety checks. Restraints/seclusion/emergency medication: None. Justification of Continued Inpatient Treatment: Pt. Requires psychiatric evaluation for appropriate medication to stabilize current crisis. Requires ongoing monitoring of patient behaviors. Without adequate treatment for current situation, pt is at high risk for readmission if discharged at this time.
--- NOTE | 2019-05-14 16:33 | NUR ---
DISCHARGE PLANNING: TIFFANIE made TC to Rylan at [facility] at [phone], to request an interview w/ pt for placement at [facility] SW left message requesting a return contact. Dahiana Pryor, Product Design Manager STRAIGHT SLICING MACHINE OPERATOR [id number] Supervised by Cal Mendoza, [id number]
[2019-05-14 19:37] VITALS: BP 106/66
[2019-05-14] MEDS: OLANZAPINE 5 MG TABLET PO SCH (21:02)
[2019-05-14] MEDS: LORazepam 1 MG tablet PO PRN (21:38)
--- NOTE | 2019-05-14 23:28 | NUR ---
Nursing Progress Note: Legal hold: 5270 Client on involuntary status for GD Report received from nurse with use of SBAR: VIANCA Basurto Why are they here: Pt admitted to the unit on a 5150 for GD after self-presenting to the ER for help. Latonya does not respond to most questions. She appears to be talking to someone that is not there. She does not remember when she last ate. She is sunburned from being outside and cannot state where she will go when she leaves. She is unable to give a plan to provide adequate food, clothing or mcfp. She has a hx of psychosis and polysubstance abuse. Assessment What has happened this shift: Pt. up wandering in the hallway between her room and the Group Room throughout the shift, she presents as restless and makes multiple requests from staff. Pt. is later in the Group Room, watching TV and interacting minimally with others, however continues to be restless throughout the shift. 5270 paperwork presented to pt. and she consented to signing. 1:1 completed at bedside, pt. presents as cooperative, restless and attention seeking at times/intrusive at times. She will sometimes interrupt this senior technical writer when talking to another patient, or yell "Nurse!" loudly into the hallway, however she is able to be redirected. Pt. is A&O X3 and reports some ongoing paranoid thoughts, states, "I admitted myself here because I thought the anit-Dereje was after me. He's a Leroy Francisco's looking mars. Sometimes at night I think he still is after me." Pt. admits that she may still be fearful if she left [facility], however she reports contentment r/t upcoming D/C to [facility]. Thought process is disorganized at times, however pt. is able to be redirected. She continues to deny A/V/MCCONNELL, however appears to be internally preoccupied at times. S/I, H/I: Denies A/VH: She denies A/V/MCCONNELL, however appears to be internally preoccupied at times. Sleep: Reports she has been sleeping well, however reports increased anxiety at HS and requests Ativan ADL's: Requires some direction from staff Group attendance: Reports she attends groups, however is unable to identify any coping skills at this time. Were meds taken: Yes Any med S/E: None Mental Status Exam Appearance: Neat and appropriately dressed Eye contact: Fair Behavior: Cooperative, restless, attentions seeking/intrusive at times Speech: Soft, minimal, however becomes intense/loud when pt. has a need Mood: Cooperative/ restless Affect: Labile Thought process: Disorganized at times, however able to be redirected Thought Content: Possible H/A and paranoid delusions Cognition: A&O X3 (not to month) Insight: Poor Judgment: Poor Interventions PRN's used: Nicotine Lozenge, Maalox Therapeutic interventions: Maintained a safe and supportive environment, encouraged independent performance of ADLs, monitored behaviors and need for intervention, provided clear and simple instructions, reoriented to reality as needed, and maintained Q 15 min safety checks. Restraints/seclusion/emergency medication: N/A Justification of Continued Inpatient Treatment: Per Dr. Kennedy, pt. is near baseline, however remains gravely disabled and meets criteria for continued hold. She will D/C to [facility] when bed available, without housing she would be a risk for relapse.
[2019-05-15 07:28] VITALS: BP 114/69
[2019-05-15] MEDS: protein shake 8oz. (237ml) PO SCH ×2 (08:00→13:35)
[2019-05-15] MEDS ORDERED: LORazepam 1 MG tablet PO SCH ×2 (08:00→13:00)
[2019-05-15] MEDS: PALIPERIDONE 3 MG TAB.ER.24 PO SCH (08:26)
--- NOTE | 2019-05-15 08:55 | NUR ---
DISCHARGE PLANNING: TIFFANIE made TC to Rylan at [facility] at [phone], to request second interview for pt placement at [facility]. SW left message requesting return contact. Dahiana Pryor, Optical Advisor WORKSITE WELLNESS PRACTITIONER [id number] Supervised by Cal Mendoza, [id number]
[2019-05-15] MEDS ORDERED: LORazepam 1 MG tablet PO ONE (10:40)
[2019-05-15] MEDS: NICOTINE POLACRILEX 2 MG LOZENGE MM PRN (11:54)
[2019-05-15] MEDS ORDERED: LORazepam 0.5 MG tablet PO SCH ×2 (13:00→14:15)
[2019-05-15] MEDS ORDERED: NICO-668 MM (13:43)
[2019-05-15] MEDS ORDERED: ATI0.5T PO (13:43)
[2019-05-15] MEDS ORDERED: PALI6TAB6 PO (13:43)
[2019-05-15] MEDS ORDERED: OLAN10TA19 PO (13:43)
--- NOTE | 2019-05-15 14:23 | NUR ---
DISCHARGE NOTE: Patient's belongings were inventoried by Rafa JOSEPH. Discharge instructions were given to patient. Patient is being transferred to [facility] for 30 day outpatient stay. Patient is discharged in stable condition and will arrange own follow-up for medical appointments.
== END 2019-05-15 13:56 | disposition short-term general hospital (02) | DRG 751 ==
LOC: ADULT MH 12:55
PROVIDERS: ADMIT Psychiatry & Neurology Psychiatry; ATTEND Psychiatry & Neurology Psychiatry
PROC: BW281ZZ Computerized Tomography (CT Scan) of Head using Low Osmolar Contrast (ICD-10-PCS; principal; 2019-04-28)
DX: F29 Unspecified psychosis not due to a substance or known physiological condition (principal); F11.20 Opioid dependence, uncomplicated; F15.20 Other stimulant dependence, uncomplicated; Z91.19 Patient's noncompliance with other medical treatment and regimen
CPT/HCPCS: 36415; 70470; 80061; 83036; 87081; 99285; Q9967

== ENCOUNTER 2019-05-17 20:44 | Emergency (ER) | payer MEDICAID, OTHER ==
[~2019-05-17] VITALS: Ht 172.7 cm; Wt 45.5 kg
[~2019-05-17 20:44] MED LIST changes: +ATI0.5T PO; +NICO-668 MM; +OLAN10TA19 PO; -OLAN10TA3 PO; +PALI6TAB6 PO
[2019-05-17] MEDS ORDERED: LORazepam 2 mg/ml vial IM ONE ×2 (21:15→23:20)
[2019-05-17 21:35] LABS: BASOPHILS # (AUTO) 0.1 X10'3 (0-0.2); BASOPHILS % (AUTO) 0.6 % (0-1); EOSINOPHILS % (AUTO) 0.2 % (0-6); HEMATOCRIT 37.3 % (35.0-45.0); HEMOGLOBIN 12.5 g/dl (12.0-16.0); LYMPHOCYTES # (AUTO) 2.1 X10'3 (1.1-4.8); LYMPHOCYTES % (AUTO) 20.8 % (21-51); MEAN CORPUSCULAR HEMOGLOBIN 29.1 PG (27.0-31.0); MEAN CORPUSCULAR HGB CONC 33.7 g/dL (33.0-36.5); MEAN CORPUSCULAR VOLUME 86.5 FL (78-98); MONOCYTES # (AUTO) 0.9 X10'3 (0-0.9); NEUTROPHILS # (AUTO) 7.1 X10'3 (1.8-7.7); NEUTROPHILS % (AUTO) 69.4 % (42-75); PLATELET COUNT 294 X10'3 (140-440); RED CELL DISTRIBUTION WIDTH 14.9 % (11.5-14.5); WHITE BLOOD COUNT 10.3 X10'3 (4.5-11.0)
[2019-05-17 21:44] LABS: ALANINE AMINOTRANSFERASE 32 U/L (12-78); ALBUMIN 4.2 G/DL (3.4-5.0); ALBUMIN/GLOBULIN RATIO 1.1 (1.1-1.5); ALKALINE PHOSPHATASE 59 IU/L (46-116); ANION GAP 8 (8-16); ASPARTATE AMINO TRANSFERASE 20 U/L (10-37); BILIRUBIN,TOTAL 0.6 MG/DL (0.1-1.0); BLOOD UREA NITROGEN 13 MG/DL (7-18); BUN/CREATININE RATIO 18.1 (6.6-38.0); CALCIUM 9.7 MG/DL (8.5-10.1); CHLORIDE 105 MMOL/L (99-107); CREATININE 0.72 MG/DL (0.40-0.90); ETHANOL < 0.010 GM/DL (0.0-0.010); GLUCOSE 98 MG/DL (70-104); POTASSIUM 3.9 MMOL/L (3.5-5.1); SODIUM 143 MMOL/L (135-145); TOTAL CARBON DIOXIDE 29.7 MMOL/L (24-32); eGFR > 90 ML/MIN
[2019-05-17 22:04] LABS: CLARITY,URINE CLEAR (Clear); COLOR,URINE YELLOW (Yellow); GLUCOSE, URINE NEGATIVE (Neg); KETONES,URINE TRACE mg/dl (Neg); LEUKOCYTE ESTERASE ,URINE NEGATIVE (Neg); NITRITES, URINE NEGATIVE (Neg); OCCULT BLOOD,URINE NEGATIVE (Neg); PROTEIN,URINE NEGATIVE (Neg); UROBILINOGEN,URINE 0.2 E.U/dL (0.2-1.0)
[2019-05-17 22:05] LABS: URINE HCG NEGATIVE (NEG)
[2019-05-17 22:08] LABS: UA COLLECTION TYPE CLN CATCH MIDSTREAM
[2019-05-17 22:15] LABS: URINE AMPHETAMINE SCREEN POSITIVE (Neg); URINE BARBITUATE SCREEN NEGATIVE (Neg); URINE BENZODIAZEPINES SCREEN NEGATIVE (Neg); URINE CANNABINOID SCREEN NEGATIVE (Neg); URINE COCAINE SCREEN NEGATIVE (Neg); URINE METHADONE SCREEN NEGATIVE (Neg); URINE OPIATE SCREEN NEGATIVE (Neg); URINE PHENCYCLIDINE SCREEN NEGATIVE (Neg)
[2019-05-17] MEDS ORDERED: haloperidol lactate 5mg/ml inj IM ONE (22:50)
--- NOTE | 2019-05-17 23:43 | NUR ---
PT MOVED FROM MAIN ER BED 11 TO OVERFLOW ER BED 21.
--- NOTE | 2019-05-18 | NUR ---
Packet faxed to [facility]. Unable to confirm receipt of packet as out of business hours.
--- NOTE | 2019-05-18 00:27 | NUR ---
patient awake talking to herself, will not answer my questions now using a bath wipe to wash her face
--- NOTE | 2019-05-18 01:30 | NUR ---
patient asked for juice and jello I returned with milk and jello because we are out of juice. Patient ate the jello and drank some whuolel milk.
--- NOTE | 2019-05-18 02:15 | NUR ---
patient called out for "another 2 mg of ativan" when asked why patient stated "cause I'm anxious, damit"
--- NOTE | 2019-05-18 02:24 | NUR ---
TALKED TO DR TRAYLOR, ORDER FOR ZYPREXA
[2019-05-18] MEDS ORDERED: OLANZapine 5mg rapidly disint. tablet PO ONE (02:25)
--- NOTE | 2019-05-18 02:25 | NUR ---
PATIENT TALING TO HERSELF AND SOUNDS LIKE SHE IS HAVING A CONVERSATION WITH ANOTHER PERSON
--- NOTE | 2019-05-18 03:20 | NUR ---
patient appears to be sleeping on her left side eyes closed rr even and unlabored
--- NOTE | 2019-05-18 05:15 | NUR ---
PATIENT UP TO BATHROOM AND THEN NURSING STATION ASKING FOR MORE JELLO. PATIENT IS STEADY ON FEET. PATIENT DRANK 240 ML WHOLE MILK AND ATE JELLO CUP. PATIENT PROVIDED WITH ANOTHER CARTON OF WHOLE MILK AND MORE JELLO PATIENT HAS NOT BEEN TALKING OUTLOUD SINCE TAKING ZYPREXA
[2019-05-18 05:30] VITALS: BP 108/59
--- NOTE | 2019-05-18 07:04 | NUR ---
Patient up to nurse's station, asked for water but has a full pitcher. Briefly wandered around the unit and then back to bed. Appeared a little confused and asked "where was I just now before I walked around?". Reminded her that she had been in bed prior and she just responded "ok".
== END 2019-05-18 11:22 | disposition home or self-care (01) ==
LOC: ER 20:45
DX: R45.851 Suicidal ideations (principal); F29 Unspecified psychosis not due to a substance or known physiological condition; F15.90 Other stimulant use, unspecified, uncomplicated; F10.20 Alcohol dependence, uncomplicated; Z88.2 Allergy status to sulfonamides; Z88.1 Allergy status to other antibiotic agents; Z79.899 Other long term (current) drug therapy; Y90.9 Presence of alcohol in blood, level not specified
CPT/HCPCS: 36415; 80053; 80305; 80320; 81003; 81025; 85025; 99284; J1630; J2060

== ENCOUNTER 2019-05-18 13:09 | Emergency (ER) | payer MEDICAID, OTHER ==
[~2019-05-18] VITALS: Ht 170.2 cm; Wt 54.0 kg
[2019-05-18 13:12] VITALS: BP 133/81
[2019-05-18] MEDS ORDERED: quetiapine 100mg tablet PO STA (13:42)
[2019-05-18] MEDS ORDERED: OLANZapine 2.5MG tablet PO ONE (13:45)
--- NOTE | 2019-05-18 15:34 | NUR ---
Pt was discharged [address] Reeder prior to pt coming back in for this visit. Her chief complaint for this visit was for medical clearance so as to go to [facility]. Pt was cleared by provider and was provided a taxi straight to [facility].
== END 2019-05-18 15:24 | disposition home or self-care (01) ==
LOC: ER 13:10
DX: F15.10 Other stimulant abuse, uncomplicated (principal); Z59.0 Homelessness; Z88.2 Allergy status to sulfonamides; Z88.8 Allergy status to other drugs, medicaments and biological substances; Z79.899 Other long term (current) drug therapy
CPT/HCPCS: 99283

== ENCOUNTER 2020-04-16 12:12 | Emergency (ER) | payer MEDICAID ==
[~2020-04-16] VITALS: Ht 167.6 cm; Wt 56.8 kg
--- NOTE | 2020-04-16 12:20 | NUR ---
Pt is talking to herself and not having coherent coversation with staff. Pt is having flight of ideas and word salad.
--- NOTE | 2020-04-16 13:15 | NUR ---
Pt is calm and cooperative but not interacting appropriately with nursing staff.
[2020-04-16 13:29] LABS: BASOPHILS # (AUTO) 0.1 X10'3 (0-0.2); BASOPHILS % (AUTO) 0.7 % (0-1); EOSINOPHILS % (AUTO) 0.3 % (0-6); HEMATOCRIT 40.1 % (35.0-45.0); HEMOGLOBIN 13.3 g/dl (12.0-16.0); LYMPHOCYTES # (AUTO) 1.8 X10'3 (1.1-4.8); MEAN CORPUSCULAR HEMOGLOBIN 29.3 PG (27.0-31.0); MEAN CORPUSCULAR HGB CONC 33.1 g/dL (33.0-36.5); MEAN CORPUSCULAR VOLUME 88.6 FL (78-98); MEAN PLATELET VOLUME 8.5 FL (7.4-10.4); MONOCYTES # (AUTO) 0.7 X10'3 (0-0.9); MONOCYTES % (AUTO) 7.8 % (2-12); NEUTROPHILS # (AUTO) 6.7 X10'3 (1.8-7.7); NEUTROPHILS % (AUTO) 72.2 % (42-75); PLATELET COUNT 331 X10'3 (140-440); RED BLOOD COUNT 4.52 X10'6 (4.20-5.60); RED CELL DISTRIBUTION WIDTH 13.9 % (11.5-14.5); WHITE BLOOD COUNT 9.3 X10'3 (4.5-11.0)
[2020-04-16] MEDS ORDERED: UNABLE TO OBTAIN (13:48)
[2020-04-16 13:49] LABS: ALANINE AMINOTRANSFERASE 33 U/L (12-78); ALBUMIN 4.3 G/DL (3.4-5.0); ALBUMIN/GLOBULIN RATIO 1.2 (1.1-1.5); ALKALINE PHOSPHATASE 56 IU/L (46-116); ANION GAP 9 (8-16); ASPARTATE AMINO TRANSFERASE 52 U/L (10-37); BILIRUBIN,TOTAL 0.6 MG/DL (0.1-1.0); BLOOD UREA NITROGEN 19 MG/DL (7-18); BUN/CREATININE RATIO 21.6 (6.6-38.0); CALCIUM 8.8 MG/DL (8.5-10.1); CHLORIDE 105 MMOL/L (99-107); CREATININE 0.88 MG/DL (0.40-0.90); GLUCOSE 96 MG/DL (70-104); POTASSIUM 3.6 MMOL/L (3.5-5.1); SODIUM 143 MMOL/L (135-145); TOTAL CARBON DIOXIDE 28.6 MMOL/L (24-32); eGFR 77 ML/MIN
[2020-04-16] MEDS ORDERED: OLANZapine 5mg rapidly disint. tablet PO ONE (14:00)
[2020-04-16 14:02] LABS: ETHANOL < 0.010 GM/DL (0.0-0.010)
--- NOTE | 2020-04-16 14:12 | NUR ---
Pt is making delusional statements "I am FBI and Dmitry Dereje!" Pt is also making comments about being transported to [facility] "where there are real Police!" Pt given sandwich, juice, jello and string cheese.
[2020-04-16] MEDS ORDERED: haloperidol lactate 5mg/ml inj IM ONE (14:20)
[2020-04-16] MEDS ORDERED: LORazepam 2 mg/ml vial IM ONE (14:20)
[2020-04-16] MEDS ORDERED: diphenhydrAMINE 50 mg/ml inj IM ONE (14:20)
--- NOTE | 2020-04-16 14:22 | NUR ---
Pt threw her food and drink at the sliding glass doors and is screaming at staff. Medications are pending.
--- NOTE | 2020-04-16 14:28 | NUR ---
Pt medicated as ordered for aggitation and aggressive behavior. Security at bedside at this time.
--- NOTE | 2020-04-16 15:30 | NUR ---
Pt is resting with even and unlabored respirations. Continuing to monitor.
--- NOTE | 2020-04-16 16:30 | NUR ---
Pt is resting on the gurney with even unlabored respirations.
--- NOTE | 2020-04-16 21:15 | NUR ---
Pt observed itching head and picking. Assessed scalp and observed nits. Calvin BLOCK notified. He stated he would put in orders.
[2020-04-16] MEDS ORDERED: Permethrin 1% 59ml topical rinse TP ONE (21:55)
--- NOTE | 2020-04-16 22:20 | NUR ---
Requested orders for lice treatment again.
--- NOTE | 2020-04-16 22:46 | NUR ---
Pt's head rinsed in bathroom after 10 minutes of wearing lice treatment. Clothing changed. Snacks given.
--- NOTE | 2020-04-16 23:00 | NUR ---
Pt's area and bed cleaned by house keeping, linen changed.
[2020-04-16] MEDS ORDERED: OLANZapine **IM** 10 mg inj. IM ONE (23:05)
--- NOTE | 2020-04-16 23:15 | NUR ---
Pt out of bed, tearful, then smiling and laughing, walking into [facility] area. Med ordered and administered.
[2020-04-16 23:16] LABS: URINE HCG NEGATIVE (NEG)
[2020-04-16 23:27] LABS: URINE AMPHETAMINE SCREEN POSITIVE (Neg); URINE BARBITUATE SCREEN NEGATIVE (Neg); URINE BENZODIAZEPINES SCREEN NEGATIVE (Neg); URINE CANNABINOID SCREEN NEGATIVE (Neg); URINE COCAINE SCREEN NEGATIVE (Neg); URINE METHADONE SCREEN NEGATIVE (Neg); URINE OPIATE SCREEN NEGATIVE (Neg); URINE PHENCYCLIDINE SCREEN NEGATIVE (Neg)
--- NOTE | 2020-04-17 00:29 | NUR ---
Pt resting quietly, respirations normal, no s/s of distress.
--- NOTE | 2020-04-17 02:42 | NUR ---
Packet sent to [facility].
--- NOTE | 2020-04-17 03:44 | NUR ---
Pt resting quietly, respirations normal, no s/s of distress.
--- NOTE | 2020-04-17 06:00 | NUR ---
Pt resting quietly, respirations normal, no s/s of distress.
[2020-04-17 06:20] VITALS: BP 92/52
--- NOTE | 2020-04-17 06:22 | NUR ---
Assumed care of client. She is currently asleep in no apparent distress.
--- NOTE | 2020-04-17 08:13 | NUR ---
Client ate all of her breakfast and then asked for extra food which was provided
--- NOTE | 2020-04-17 09:37 | NUR ---
Client continues to sleep in no distress.
--- NOTE | 2020-04-17 11:01 | NUR ---
Arjun from [facility] attempted to speak to client. He was unable to arouse her.
--- NOTE | 2020-04-17 12:05 | NUR ---
Pt resting quietly, respirations normal, no s/s of distress.
--- NOTE | 2020-04-17 12:14 | NUR ---
Pt speaking with Arjun from [facility]
== END 2020-04-17 12:15 | disposition home or self-care (01) ==
LOC: ER 12:13
DX: F29 Unspecified psychosis not due to a substance or known physiological condition (principal); R41.82 Altered mental status, unspecified; F15.90 Other stimulant use, unspecified, uncomplicated; Z59.0 Homelessness; Z88.2 Allergy status to sulfonamides; Z79.899 Other long term (current) drug therapy
CPT/HCPCS: 36415; 80053; 80305; 80320; 81025; 84443; 85025; 96372; 99285; J1200; J1630; J2060; J3490; 99284